=== PATIENT | female | born 1985 | race Caucasian/White ===

== ENCOUNTER 2020-08-27 07:17 | Inpatient (IN) | payer MEDICAID, OTHER, SELFPAY ==
[2020-08-27] MEDS ORDERED: Metoclopramide HCl 10 MG/2 ML VIAL ONE (07:47)
[2020-08-27] MEDS ORDERED: Ketorolac Tromethamine 30 MG/ML VIAL ONE (07:47)
[2020-08-27] MEDS ORDERED: Promethazine HCl 25 MG/ML VIAL ONE ×2 (08:03→11:40)
[2020-08-27 08:06] LABS: #Lymphocytes 1.4 thou/uL (1.20-3.40); #Monocytes 0.7 thou/uL (0.11-0.59); #Neutrophils 12.6 thou/uL (1.40-6.50); %Basophils 0.1 % (0.0-1.0); %Eosinophils 0.1 % (0.0-10.0); %Lymphocytes 9.4 % (21.0-51.0); %Monocytes 4.6 % (0.0-10.0); %Neutrophils 85.8 % (42.0-75.0); Hemoglobin 13.9 g/dL (12.0-16.0); Mean Corpuscular HGB CONC 32.9 g/dL (32.0-36.0); Mean Corpuscular Hemoglobin 33.3 pg (27.0-31.0); Mean Platelet Volume 9.9 fL (7.4-10.4); Platelet Count 190 thou/uL (130-400); RBC Distribution Width 12.2 % (11.5-14.5); Red Blood Cell (RBC) Count 4.16 mill/uL (4.20-5.40); White Blood Cell (WBC) Count 14.7 thou/uL (4.8-10.8)
[2020-08-27 08:18] LABS: ALT (SGPT) 23 U/L (8-55); AST (SGOT) 17 U/L (5-34); Albumin 3.9 g/dL (3.5-5.0); Alkaline Phosphatase 71 U/L (40-110); Anion Gap 17 mmol/L (10-20); BUN (Urea Nitrogen) 24 mg/dL (7.0-18.7); Bilirubin, Total 1.5 mg/dL (0.2-1.2); Calc. Creatinine Clearance 0 mL/min (70-130); Calcium 8.8 mg/dL (7.8-10.44); Carbon Dioxide 23 mmol/L (22-29); Chloride 108 mmol/L (98-107); Globulin 2.7 g/dL (2.4-3.5); Glucose 195 mg/dL (70-105); Lipase Less than 4 U/L (8-78); Magnesium 1.9 mg/dL (1.6-2.6); Protein, Total 6.6 g/dL (6.0-8.3); Sodium 144 mmol/L (136-145)
[2020-08-27 08:31] LABS: Bacteria/HPF None Seen HPF (None Seen); Bilirubin 2+ (Negative); Blood, Urine Negative (Negative); Clarity Clear (Clear); Glucose, Urine (Dipstick) Greater than 1000 mg/dL (Negative); Ketone, Urine 150 mg/dL (Negative); Leukocyte Negative Leu/uL (Negative); Nitrite Negative (Negative); Protein, Urine (Dipstick) 100 mg/dL (Neg-Trace); RBC/HPF 0-3 HPF (0-3); Specific Gravity, Urine 1.035 (1.002-1.036)
[2020-08-27 08:32] LABS: Pregnancy Test - Urine (BHCG) Negative (Negative); Specific Gravity 1.035 (1.002-1.036)
[2020-08-27 08:33] LABS: Pregu Control Background? CLEAR/WHITE (CLR/WHITE); Pregu Control Bar Appear? YES (CONTROL BAR)
[2020-08-27] MEDS ORDERED: Morphine 2 MG/ML VIAL ONE (10:12)
--- NOTE | 2020-08-27 10:46 | CT ---
CT ABDOMEN AND PELVIS WITH IV CONTRAST 08/27/2020 CLINICAL INFORMATION: Abdominal pain. Patient reports three-day history of nausea, vomiting, and back pain. History of digna roparesis and diabetes. COMPARISON: None. Technique: Multiple contiguous axial CT images are obtained through the abdomen and pelvis with IV contrast. Cor onal reformatted images are provided. FINDINGS: Lower Chest: Minimal dependent bibasilar atelectasis. Vessels: Abdominal aorta is normal in caliber. Abdomen: Portal vein:Patent Gallbladder: Within normal limits for CT imaging. Liver: within normal limits. Spleen: within normal limits. Pancreas: within normal limits. Adrenals: within normal limits. Kidneys: within normal limits. Bowel: Portions of the colon are decompressed. There are suggested areas of wall thickening seen in r egion of the hepatic flexure and transverse colon, but this is most likely related to incomplete distention and peristalsis. Loops of small bowel are normal in caliber. There is a single dilated flu id-filled loop of small bowel left upper quadrant, but this is likely related to peristalsis. Appendix: Not visualized. However, there is radiopaque suture material cecal apex likely related to p rior appendectomy. Peritoneum: No ascites or free air; no fluid collection. Mesentery and Retroperitoneum: No enlarged mesenteric or retroperitoneal lymph nodes. Abdominal Wall: within normal limits. Pelvis: Reproductive Organs: T-shaped intrauterine contraceptive device is noted in place. A 1.8 cm low-atten uation structure seen in the right ovary likely due to small ovarian cyst. Bladder: within normal limits. Bones: No suspicious lytic or sclerotic osseous lesions. IMPRESSION: No acute findings in the abdomen or pelvis.
[2020-08-27] MEDS ORDERED: Iopamidol-370 76% 500 ML 1 ML ONE (11:20)
[2020-08-27] MEDS ORDERED: Morphine 4 MG/ML VIAL ONE (13:54)
[2020-08-27] MEDS ORDERED: Acetaminophen 650 MG Suppository PR PRN (15:16)
[2020-08-27] MEDS ORDERED: Dextrose 50% Abboject 50 ML SYRINGE SLOW IVP PRN (15:28)
[2020-08-27] MEDS ORDERED: Dextrose 5% in Water 1,000 ML IV PRN (15:28)
--- NOTE | 2020-08-27 15:55 | PDOC.HHP ---
Hospitalist HPI - History of Present Illness History of Present Illness: ADMISSION DATE: 08/27/2020 TIME OF ASSESSMENT:0100 PRIMARY CARE PHYSICIAN: Anna Lovell CHIEF COMPLAINT: Intractable nausea/vomiting HPI: This is a 34-year-old woman who presents emergency department with persistent nausea vomiting for the last 3 days. She states she has vomited more than 5 times each day and unable to tolerate any p.o. intake. She states the vomiting happened spontaneously even when she is not attempting to eat or drink. More recently she has started vomiting bilious fluid. She noticed today that her stools were tarry in appearance. Denies any hematemesis. Has not had any recent fevers chills or sweats. Patient has a history of type 1 diabetes and a known history of gastroparesis. Reports having similar symptoms approximately 10 years ago when she was initially diagnosed with gastroparesis. At that time she was started on Reglan which she took for a couple of years and eventually was taken off due to her symptoms improving. She was seen in the ER and prescribed Reglan and Zofran which she attempted to take at home without any improvement. ROS: She reports having generalized discomfort and aching particularly in her back. Denies having any dizziness or headaches. No abdominal pain or urinary s ymptoms. ED COURSE: In the emergency department she underwent labs that showed a white count of 14.7, hemoglobin 13.9, hematocrit 42.1, platelets 190, neutrophils 85.8%. Sodium 144, potassium 4, chloride 108, carbon dioxide 23, anion gap 17, BUN 24, creatinine 0.87, GFR 74. Glucose 195. LFTs normal except for total bilirubin which was elevated at 1.5. Lipase negative. Magnesium 1.9. Ketones elevated at 1.58 Urine test negative. Urinalysis showed 100 protein, greater than 1000 glucose, 150 ketones, 2+ bilirubin, 4-6 white blood cells, 7-[address] abdomen and pelvis done demonstrated no acute findings. For her pain she has received a total of 6 mg of morphine IV. Also given 30 mg of Toradol IV. She has been given 1 L of normal saline. For nausea vomiting she received promethazine as well as Reglan. PAST MEDICAL HISTORY: 1. Type 1 diabetes mellitus 2. Gastroparesis PAST SURGICAL HISTORY: 1. x2 2. Appendectomy SOCIAL HISTORY: Denies any tobacco use or alcohol consumption. States she did try smoking marijuana recently, 1 day ago, to see if it would help control her nausea and vomiting. Denies any other history of drug use. FAMILY HISTORY: Noncontributory ALLERGIES: No known drug allergies CURRENT MEDICATIONS: 1. Lantus 37 units a day at bedtime 2. Novolin - Exam General Appearance: NAD, awake alert, ill appearing (appears generally unwell) General - other findings: VS: Temp 98.6, HR 63, BP 146/83, RR 18, O2 sat 97% on room air Eye: PERRL, anicteric sclera ENT: normocephalic atraumatic, no oropharyngeal lesions, dry oral mucosa Neck: supple, symmetric, no lymphadenopathy Heart: RRR, no murmur, no gallops, normal peripheral pulses Respiratory: CTAB, no wheezes, no rales, no ronchi, normal chest expansion, no tachypnea, normal percussion Gastrointestinal: soft, non-tender, non-distended, normal bowel sounds, no palpable masses, no guarding, no rigidity Extremities: no edema Skin: normal turgor, no lesions, no rashes Neurological: cranial nerve grossly intact, normal sensation to touch Musculoskeletal: generalized weakness Psychiatric: normal affect, normal behavior, A&O x 3 Hospitalist Results - Labs Result Diagrams: 08/27/20 07:48 08/27/20 07:48 Lab results: WBC 14.7 thou/uL (4.8-10.8) H 08/27/20 07:48 Hgb 13.9 g/dL (12.0-16.0) 08/27/20 07:48 Hct 42.1 % (36.0-47.0) 08/27/20 07:48 MCV 101.0 fL (78.0-98.0) H 08/27/20 07:48 Plt Count 190 thou/uL (130-400) 08/27/20 07:48 Neutrophils % 85.8 % (42.0-75.0) H 08/27/20 07:48 Sodium 144 mmol/L (136-145) 08/27/20 07:48 Potassium 4.0 mmol/L (3.5-5.1) 08/27/20 07:48 Chloride 108 mmol/L (98-107) H 08/27/20 07:48 Carbon Dioxide 23 mmol/L (22-29) 08/27/20 07:48 BUN 24 mg/dL (7.0-18.7) H 08/27/20 07:48 Creatinine 0.87 mg/dL (0.6-1.1) 08/27/20 07:48 Glucose 195 mg/dL (70-105) H 08/27/20 07:48 Calcium 8.8 mg/dL (7.8-10.44) 08/27/20 07:48 Total Bilirubin 1.5 mg/dL (0.2-1.2) H 08/27/20 07:48 AST 17 U/L (5-34) 08/27/20 07:48 ALT 23 U/L (8-55) 08/27/20 07:48 Alkaline Phosphatase 71 U/L (40-110) 08/27/20 07:48 Serum Total Protein 6.6 g/dL (6.0-8.3) 08/27/20 07:48 Albumin 3.9 g/dL (3.5-5.0) 08/27/20 07:48 Lipase Less than 4 U/L (8-78) L 08/27/20 07:48 Urine Ketones 150 mg/dL (Negative) A 08/27/20 08:08 Urine Blood Negative (Negative) 08/27/20 08:08 Urine Nitrite Negative (Negative) 08/27/20 08:08 Ur Leukocyte Esterase Negative Ana/uL (Negative) 08/27/20 08:08 Urine RBC 0-3 HPF (0-3) 08/27/20 08:08 Urine WBC 4-6 HPF (0-3) A 08/27/20 08:08 Ur Squamous Epith Cells 7-10 HPF (0-3) A 08/27/20 08:08 Urine Bacteria None Seen HPF (None Seen) 08/27/20 08:08 - Radiology Interpretation CT scan - abdomen Status: report reviewed by co Hospitalist H&P A/P - Problem (1) Intractable nausea and vomiting Code(s): R11.2 - NAUSEA WITH VOMITING, UNSPECIFIED Status: Acute Assessment and Plan: Known history of gastroparesis Continue Reglan and Zofran Check electrolytes, replace as necessary Check UDS (2) Complaint of melena Code(s): K92.1 - MELENA Status: Acute Assessment and Plan: Check stools for occult blood May have developed bleeding from Earline Hanley tear Monitor H/H (3) Ketosis Code(s): E88.89 - OTHER SPECIFIED METABOLIC DISORDERS Status: Acute Assessment and Plan: Aggressive fluid resuscitation NS at 250 mL/Hr Ok to take sips of water/ice chips Repeat Ketones (4) Type 1 diabetes mellitus Status: Chronic Assessment and Plan: Monitor glucose Q6H Mild sliding scale initiated only for now Ok to resume home insulin once she resumes a diet (5) Dehydration Code(s): E86.0 - DEHYDRATION Status: Acute Assessment and Plan: IV fluids as above Monitor renal function Check CK (6) Total bilirubin, elevated Code(s): R17 - UNSPECIFIED JAUNDICE Status: Acute Assessment and Plan: Likely due to excessive vomiting Repeat LFTs including direct bili and lipase in the AM (7) Gastroparesis Code(s): K31.84 - GASTROPARESIS Status: Chronic - Plan Plan: Baseline CXR GI prophylaxis with Protonix DVT Prophylaxis: mechanical SCDs. CODE STATUS FULL Case discussed with Dr. Deleon who agrees with plan as above.
[2020-08-27] MEDS ORDERED: Pantoprazole 40 MG VIAL IVP SCH (16:15)
[2020-08-27] MEDS ORDERED: Sodium Chloride 0.9% (PF) 10 ML VIAL FS PRN (16:30)
[2020-08-27 16:31] LABS: Lactic Acid 1.1 mmol/L (0.5-2.2)
[2020-08-27] MEDS: Sodium Chloride 0.9% 1,000 ML IV SCH ×2 (16:31→20:28)
--- NOTE | 2020-08-27 16:34 | RAD ---
TWO VIEW CHEST: 08/27/20 HISTORY: Chest pain. No comparison. Lung martinez are clear. No infiltrate identified. Heart and mediastinum unremarkable. Osseous structur es unremarkable. IMPRESSION: No acute abnormality identified. POS: AGW
[2020-08-27 16:47] LABS: Amphetamine Not Detected (NotDetected); Barbiturates Screen Not Detected (NotDetected); Benzodiazepine Screen Not Detected (NotDetected); Cocaine Metabolite Screen Not Detected (NotDetected); Medtox Control Line Valid? VALID (VALID); Medtox Reader # READER 4; Methadone Not Detected (NotDetected); Methamphetamine Not Detected (NotDetected); Opiate Screen Not Detected (NotDetected); Oxycodone Screen Not Detected (NotDetected); Phencyclidine (PCP) Not Detected (NotDetected); THC/Cannabinoid Screen Detected (NotDetected); Tricyclic Screen Not Detected (NotDetected)
[2020-08-27] MEDS: Ondansetron PF 4 MG/2 ML Vial IVP PRN (17:52)
[2020-08-27] MEDS: Acetaminophen 325 MG TAB PO PRN (19:58)
[2020-08-27] MEDS ORDERED: Famotidine/PF 20 mg/2ml Vial SLOW IVP SCH (21:00)
[2020-08-27] MEDS ORDERED: Ketorolac Tromethamine 30 MG/ML VIAL IVP SCH (21:15)
[2020-08-27 22:58] VITALS: BMI 28.6
[2020-08-27 23:48] LABS: SARS-CoV-2 MS2 Positive; SARS-CoV-2 N Gene Negative; SARS-CoV-2 S Gene Negative; SARS-CoV-2 by NAA Not Detected (NotDetected); SARS-CoV-2 orf1ab Negative
[2020-08-28] MEDS: Ondansetron PF 4 MG/2 ML Vial IVP PRN ×4 (01:01→19:59)
[2020-08-28] MEDS: Sodium Chloride 0.9% 1,000 ML IV SCH ×5 (01:02→21:23)
[2020-08-28] MEDS ORDERED: Ketorolac Tromethamine 30 MG/ML VIAL IVP SCH (02:15)
[2020-08-28] MEDS ORDERED: Promethazine HCl 25 MG in Sodium Chloride 0.9% 50 ML IVPB SCH (03:30)
[2020-08-28 05:55] LABS: ALT (SGPT) 20 U/L (8-55); AST (SGOT) 14 U/L (5-34); Albumin 3.5 g/dL (3.5-5.0); Alkaline Phosphatase 65 U/L (40-110); Anion Gap 17 mmol/L (10-20); BUN (Urea Nitrogen) 16 mg/dL (7.0-18.7); Bilirubin, Total 1.5 mg/dL (0.2-1.2); Calc. Creatinine Clearance 136 mL/min (70-130); Carbon Dioxide 23 mmol/L (22-29); Chloride 104 mmol/L (98-107); Globulin 2.4 g/dL (2.4-3.5); Glucose 208 mg/dL (70-105); Lipase Less than 4 U/L (8-78); Potassium 3.6 mmol/L (3.5-5.1); Protein, Total 5.9 g/dL (6.0-8.3); Sodium 140 mmol/L (136-145)
[2020-08-28 06:15] LABS: #Basophils 0.1 thou/uL (0.0-0.2); #Lymphocytes 1.8 thou/uL (1.20-3.40); #Monocytes 0.6 thou/uL (0.11-0.59); #Neutrophils 6.8 thou/uL (1.40-6.50); %Basophils 0.6 % (0.0-1.0); %Eosinophils 0.3 % (0.0-10.0); %Lymphocytes 19.3 % (21.0-51.0); %Monocytes 6.7 % (0.0-10.0); %Neutrophils 73.2 % (42.0-75.0); Hemoglobin 12.8 g/dL (12.0-16.0); Mean Corpuscular HGB CONC 33.1 g/dL (32.0-36.0); Mean Corpuscular Hemoglobin 32.3 pg (27.0-31.0); Mean Corpuscular Volume 97.5 fL (78.0-98.0); Platelet Count 143 thou/uL (130-400); RBC Distribution Width 11.8 % (11.5-14.5); Red Blood Cell (RBC) Count 3.97 mill/uL (4.20-5.40); White Blood Cell (WBC) Count 9.3 thou/uL (4.8-10.8)
[2020-08-28] MEDS: HumaLOG 300 UNITS/3 ML VIAL SC PRN ×2 (06:45→14:04)
[2020-08-28] MEDS: Pantoprazole 40 MG VIAL IVP SCH (08:29)
[2020-08-28] MEDS ORDERED: Dextrose 5 %-0.45 % NaCl 1,000 ML IV PRN (10:00)
[2020-08-28] MEDS ORDERED: Sodium Chloride 0.9% 1,000 ML IV PRN ×4 (10:00)
[2020-08-28] MEDS ORDERED: Electrolyte Replacement Protocol 1 EACH IVPB SCH (10:00)
[2020-08-28] MEDS ORDERED: NS 0.9% w/ 20 MEQ KCL 1,000 ML IV PRN ×2 (10:00)
--- NOTE | 2020-08-28 10:12 | PDOC.HOSPP ---
- Subjective Encounter Date: 08/28/20 Encounter Time: 10:08 Subjective: Patient continues to feel generally unwell. She states she vomited this morning and has continued to feel nauseated with dry heaving. Given Promethazine. Reports having a fruity breath this morning. Also reports generalized back pain that seems to be worse if she stands straight, states she has abdominal discomfort as well when she stands straight. Her discomfort is alleviated by hunching over. She recalls having a sore on the left inner thigh a month ago which was draining purulent material. She self-treated by squeezing out the pus, cleaning and applying bandages. Did not receive any medical care or antibiotics for this. Reports having occasional swelling in the area but has not drained for some time. It remains sore/tender. Has been tolerating sips of water and ice. Denies any fevers, chills or sweats overnight. No headaches or dizziness. No chest pain, cough or sob. No urinary symptoms. All other review of systems are negative. - Objective Vital Signs & Weight: Vital Signs (12 hours) Temp Pulse Resp BP Pulse Ox 08/28/20 08:20 98.6 F 66 16 137/79 97 08/28/20 04:39 98.3 F 71 20 147/85 H 97 08/27/20 23:17 98.4 F 65 20 134/74 98 Weight Weight 182 lb 15.739 oz I&O: 08/27/20 08/28/20 08/29/20 06:59 06:59 06:59 Intake Total 2401 Output Total 50 Balance 2351 Result Diagrams: 08/28/20 05:15 08/28/20 05:15 Additional Labs: Accuchecks 08/28/20 08/27/20 05:16 23:21 POC Glucose 201 H 164 H Hospitalist ROS - Medication Medications: Active Medications Generic Name Dose Route Start Last Admin Trade Name Freq PRN Reason Stop Dose Admin Acetaminophen 650 mg 08/27/20 15:16 08/27/20 19:58 Acetaminophen 325 Mg Tab PO 650 mg Q4H PRN Administration Headache/Fever/Mild Pain (1-3) Sodium Chloride 1,000 mls @ 200 mls/hr 08/27/20 15:30 08/28/20 06:45 Normal Saline 0.9% IV 1,000 mls .Q5H TEODORO Administration Insulin Human Lispro 0 units 08/27/20 15:28 08/28/20 06:45 Humalog 300 Units/3 Ml Vial SC 3 unit .MILD SLIDING SCALE PRN Administration Mild Correctional Scale Ondansetron HCl 4 mg 08/27/20 15:16 08/28/20 08:29 Ondansetron Pf 4 Mg/2 Ml Vial IVP 4 mg Q6H PRN Administration Nausea/Vomiting Pantoprazole Sodium 40 mg 08/28/20 09:00 08/28/20 08:29 Pantoprazole 40 Mg Vial IVP 40 mg DAILY TEODORO Administration - Exam General Appearance: ill appearing (found hunched over the sink.) Eye: PERRL, anicteric sclera ENT: normocephalic atraumatic, no oropharyngeal lesions Neck: supple, no lymphadenopathy Heart: RRR, no murmur, no gallops, no rubs, normal peripheral pulses Respiratory: CTAB, no wheezes, no rales, no ronchi, normal chest expansion, no tachypnea Gastrointestinal: soft, non-tender, non-distended, normal bowel sounds, no palpable masses, no guarding, no rigidity Gastrointestinal - other findings: negative Vee's sign, mild discomfort when she stands straight. Extremities: no edema Skin: normal turgor, no rashes Skin - other findings: Sore on left inner thigh, no fluctuant or firm collection, no cellulitis Neurological: cranial nerve grossly intact, normal sensation to touch, no weakness, no focal deficits Musculoskeletal: normal tone, normal strength Psychiatric: normal affect, normal behavior, A&O x 3 Hosp A/P (1) Ketosis Code(s): E88.89 - OTHER SPECIFIED METABOLIC DISORDERS Status: Acute Plan: Worse from yesterday and now with "fruity breath" per patient. Will start DKA protocol as per discussion with Dr. Deleon. Transfer to [facility] for above. (2) Intractable nausea and vomiting Code(s): R11.2 - NAUSEA WITH VOMITING, UNSPECIFIED Status: Acute Plan: Continue Reglan (3) Complaint of melena Code(s): K92.1 - MELENA Status: Acute Plan: No further episodes of "black tarry" stools. H/H remains stable. (4) Type 1 diabetes mellitus Status: Chronic Plan: Patient remains NPO except for sips of water/ice due to N/V Plan as above (5) Dehydration Code(s): E86.0 - DEHYDRATION Status: Acute Plan: BUN/GFR improved compared to yesterday Continue IV Fluids per DKA protocol (6) Total bilirubin, elevated Code(s): R17 - UNSPECIFIED JAUNDICE Status: Acute Plan: Stable, direct bili 0.5 negative murphys sign. Monitor LFTs. Likely reactive due to vomiting. (7) Gastroparesis Code(s): K31.84 - GASTROPARESIS Status: Chronic Plan: Secondary to diabetes (8) Leukocytosis Code(s): D72.829 - ELEVATED WHITE BLOOD CELL COUNT, UNSPECIFIED Status: Acute Plan: Initially thought to be reactive due to intractable n/v COVID negative. CXR unremarkable and UA without evidence of UTI Respiratory viral panel ordered. Possible source is left inner thigh wound (Cx pending) She remains afebrile. WCC trending down. Consider starting IV Abx (Vanc/Rocephin) Wound care consulted - Plan DVT proph w/SCDs Continue Toradol for generalized aches/back discomfort GI prophylaxis: Resume pantoprazole CODE STATUS FULL Case discussed with Dr. Deleon who agrees with plan as above.
[2020-08-28] MEDS ORDERED: Magnesium 2 GM/50 ML 2 GM in Premix Bag 1 BAG IVPB SCH (10:45)
[2020-08-28] MEDS: Metoclopramide HCl 10 MG/2 ML VIAL IVP PRN ×2 (11:32→17:15)
[2020-08-28] MEDS: Ketorolac Tromethamine 30 MG/ML VIAL IVP SCH ×2 (11:32→17:13)
[2020-08-28 14:22] LABS: Anion Gap 19 mmol/L (10-20); BUN (Urea Nitrogen) 17 mg/dL (7.0-18.7); Calc. Creatinine Clearance 129 mL/min (70-130); Calcium 8.3 mg/dL (7.8-10.44); Carbon Dioxide 21 mmol/L (22-29); Chloride 103 mmol/L (98-107); Glucose 230 mg/dL (70-105); Potassium 3.8 mmol/L (3.5-5.1); Sodium 139 mmol/L (136-145)
[2020-08-28] MEDS ORDERED: HumaLOG 300 UNITS/3 ML VIAL SC PRN (16:15)
[2020-08-28] MEDS: HUMULIN R 100 UNITS in Sodium Chloride 0.9% 100 ML IVPB SCH (17:13)
[2020-08-28] MEDS: D5 1/2 NS w/20 mEq KCL 1,000 ML IV PRN ×2 (17:13→21:20)
[2020-08-28 18:56] LABS: Anion Gap 20 mmol/L (10-20); BUN (Urea Nitrogen) 17 mg/dL (7.0-18.7); Calc. Creatinine Clearance 131 mL/min (70-130); Calcium 8.2 mg/dL (7.8-10.44); Carbon Dioxide 21 mmol/L (22-29); Chloride 103 mmol/L (98-107); Glucose 229 mg/dL (70-105); Potassium 3.6 mmol/L (3.5-5.1); Sodium 140 mmol/L (136-145)
[2020-08-29] MEDS: Metoclopramide HCl 10 MG/2 ML VIAL IVP PRN ×4 (00:23→21:52)
[2020-08-29] MEDS: Ketorolac Tromethamine 30 MG/ML VIAL IVP SCH ×2 (00:24→06:24)
[2020-08-29] MEDS: Sodium Chloride 0.9% 1,000 ML IV SCH ×2 (03:56→08:19)
[2020-08-29] MEDS: Ondansetron PF 4 MG/2 ML Vial IVP PRN ×2 (04:02→11:21)
[2020-08-29 04:17] LABS: Lactic Acid 1.4 mmol/L (0.5-2.2)
[2020-08-29 04:18] LABS: #Eosinphils 0.1 thou/uL (0.0-0.7); #Lymphocytes 2.6 thou/uL (1.20-3.40); #Monocytes 0.6 thou/uL (0.11-0.59); #Neutrophils 5.4 thou/uL (1.40-6.50); %Basophils 0.2 % (0.0-1.0); %Eosinophils 0.6 % (0.0-10.0); %Lymphocytes 29.9 % (21.0-51.0); %Monocytes 6.8 % (0.0-10.0); %Neutrophils 62.5 % (42.0-75.0); Hemoglobin 12.4 g/dL (12.0-16.0); Mean Corpuscular HGB CONC 34.4 g/dL (32.0-36.0); Mean Corpuscular Hemoglobin 33.7 pg (27.0-31.0); Mean Corpuscular Volume 98.1 fL (78.0-98.0); Mean Platelet Volume 9.8 fL (7.4-10.4); Platelet Count 147 thou/uL (130-400); RBC Distribution Width 11.6 % (11.5-14.5); Red Blood Cell (RBC) Count 3.67 mill/uL (4.20-5.40); White Blood Cell (WBC) Count 8.6 thou/uL (4.8-10.8)
[2020-08-29 04:42] LABS: ALT (SGPT) 16 U/L (8-55); AST (SGOT) 11 U/L (5-34); Albumin 3.1 g/dL (3.5-5.0); Alkaline Phosphatase 56 U/L (40-110); Bilirubin, Direct 0.5 mg/dL (0.1-0.3); Bilirubin, Total 1.3 mg/dL (0.2-1.2); Protein, Total 5.3 g/dL (6.0-8.3)
[2020-08-29 04:43] LABS: Anion Gap 8 mmol/L (10-20); BUN (Urea Nitrogen) 11 mg/dL (7.0-18.7); Calc. Creatinine Clearance 140 mL/min (70-130); Calcium 7.8 mg/dL (7.8-10.44); Carbon Dioxide 27 mmol/L (22-29); Chloride 106 mmol/L (98-107); Glucose 121 mg/dL (70-105); Potassium 3.4 mmol/L (3.5-5.1); Sodium 138 mmol/L (136-145)
[2020-08-29] MEDS: D5 1/2 NS w/20 mEq KCL 1,000 ML IV PRN (06:24)
[2020-08-29] MEDS ORDERED: Potassium Chloride 40 MEQ in Sodium Chloride 0.9% 250 ML 250 ML IVPB SCH (08:00)
[2020-08-29] MEDS: HUMULIN R 100 UNITS in Sodium Chloride 0.9% 100 ML IVPB SCH (08:06)
[2020-08-29] MEDS: Pantoprazole 40 MG VIAL IVP SCH (08:06)
[2020-08-29] MEDS ORDERED: Magnesium 2 GM/50 ML 2 GM in Premix Bag 1 BAG IVPB SCH ×3 (09:15→15:00)
[2020-08-29] MEDS ORDERED: Dextrose 5% in Water 1,000 ML IV PRN (09:53)
[2020-08-29] MEDS: Insulin Glargine 37 UNITS in Pre-Filled Syringe 1 EACH SC SCH (11:20)
--- NOTE | 2020-08-29 13:32 | PDOC.HOSPP ---
- Subjective Encounter Date: 08/29/20 Subjective: The patient had no new episodes of nausea and vomiting today. - Objective Vital Signs & Weight: Vital Signs (12 hours) Temp Pulse Ox 08/29/20 07:50 99 08/29/20 07:40 98.7 F 08/29/20 04:10 98.2 F Weight Admit Weight 182 lb 15.68 oz Weight 182 lb 15.68 oz Most Recent Monitor Data Heart Rate from ECG 70 NIBP 135/77 NIBP BP-Mean 96 Respiration from ECG 14 SpO2 98 I&O: 08/28/20 08/29/20 08/30/20 06:59 06:59 06:59 Intake Total 2401 3015 516 Output Total 50 Balance 2351 3015 516 Result Diagrams: 08/29/20 03:40 08/29/20 03:40 Additional Labs: Accuchecks 08/29/20 08/29/20 08/29/20 09:05 08:05 06:03 POC Glucose 151 H 165 H 174 H 08/29/20 08/29/20 08/29/20 05:21 04:06 03:09 POC Glucose 175 H 97 135 H 08/29/20 08/29/20 08/28/20 01:26 00:05 23:16 POC Glucose 166 H 176 H 174 H 08/28/20 08/28/20 08/28/20 22:09 21:07 20:28 POC Glucose 194 H 199 H 203 H 08/28/20 08/28/20 08/28/20 19:04 18:04 16:16 POC Glucose 212 H 221 H 219 H Hospitalist ROS - Medication Medications: Active Medications Generic Name Dose Route Start Last Admin Trade Name Freq PRN Reason Stop Dose Admin Acetaminophen 650 mg 08/27/20 15:16 08/27/20 19:58 Acetaminophen 325 Mg Tab PO 650 mg Q4H PRN Administration Headache/Fever/Mild Pain (1-3) Potassium Chloride/Dextrose/Sod Cl 1,000 mls @ 250 mls/hr 08/28/20 10:00 08/29/20 06:24 D5 1/2 Ns W/20 Meq Kcl IV 1,000 mls .Q4H PRN Administration Step 4 of DKA Protocol Protocol Insulin Glargine 37 units/ 0.37 mls @ 0 mls/hr 08/29/20 09:00 08/29/20 11:20 Miscellaneous Medication SC 0.37 mls QAM TEODORO Administration Metoclopramide HCl 10 mg 08/28/20 08:01 08/29/20 06:25 Metoclopramide Hcl 10 Mg/2 Ml Vial IVP 10 mg Q6H PRN Administration Nausea/Vomiting Ondansetron HCl 4 mg 08/27/20 15:16 08/29/20 11:21 Ondansetron Pf 4 Mg/2 Ml Vial IVP 4 mg Q6H PRN Administration Nausea/Vomiting Pantoprazole Sodium 40 mg 08/28/20 09:00 08/29/20 08:06 Pantoprazole 40 Mg Vial IVP 40 mg DAILY TEODORO Administration - Exam General Appearance: awake alert ENT: normocephalic atraumatic Neck: supple, no JVD Heart: RRR Respiratory: normal chest expansion, no tachypnea Extremities: no cyanosis, no clubbing Neurological: cranial nerve grossly intact Hosp A/P (1) Intractable nausea and vomiting Code(s): R11.2 - NAUSEA WITH VOMITING, UNSPECIFIED Status: Acute (2) Dehydration Code(s): E86.0 - DEHYDRATION Status: Acute (3) Ketosis Code(s): E88.89 - OTHER SPECIFIED METABOLIC DISORDERS Status: Acute (4) Gastroparesis Code(s): K31.84 - GASTROPARESIS Status: Chronic (5) Type 1 diabetes mellitus Status: Chronic - Plan Patient's condition is improving today. Will discontinue insulin drip as the patient is likely not in DKA. Her ketosis is possibly due to dehydration and nausea and vomiting. Continue metoclopramide as needed for nausea and vomiting induced by her gastroparesis. Start diabetic diet and aggressive sliding scale of insulin. Restart her home Lantus. Continue hydration.
[2020-08-29] MEDS: Acetaminophen 325 MG TAB PO PRN (14:21)
[2020-08-29] MEDS: HumaLOG 300 UNITS/3 ML VIAL SC PRN ×2 (14:32→18:07)
[2020-08-29] MEDS ORDERED: traMADol HCl 50 MG TAB PO SCH (19:45)
[2020-08-29] MEDS ORDERED: Promethazine HCl 12.5 MG in Sodium Chloride 0.9% 50 ML IVPB SCH (20:00)
[2020-08-30] MEDS: Ondansetron PF 4 MG/2 ML Vial IVP PRN ×3 (03:22→15:44)
[2020-08-30] MEDS: Acetaminophen 325 MG TAB PO PRN (03:22)
[2020-08-30 05:37] LABS: Anion Gap 16 mmol/L (10-20); BUN (Urea Nitrogen) 10 mg/dL (7.0-18.7); Calc. Creatinine Clearance 140 mL/min (70-130); Calcium 8.4 mg/dL (7.8-10.44); Carbon Dioxide 23 mmol/L (22-29); Chloride 100 mmol/L (98-107); Glucose 261 mg/dL (70-105); Potassium 4.2 mmol/L (3.5-5.1); Sodium 135 mmol/L (136-145)
[2020-08-30] MEDS: HumaLOG 300 UNITS/3 ML VIAL SC PRN ×3 (06:31→16:44)
[2020-08-30] MEDS: Metoclopramide HCl 10 MG/2 ML VIAL IVP PRN ×3 (06:31→19:44)
[2020-08-30] MEDS: Insulin Glargine 37 UNITS in Pre-Filled Syringe 1 EACH SC SCH (09:55)
[2020-08-30] MEDS: Pantoprazole 40 MG VIAL IVP SCH (09:57)
--- NOTE | 2020-08-30 17:05 | PDOC.HOSPP ---
- Subjective Encounter Date: 08/30/20 Subjective: Her nausea and vomiting improved since yesterday. She is tolerating liquid diet and ice cream this morning. - Objective Vital Signs & Weight: Vital Signs (12 hours) Temp Pulse Resp BP Pulse Ox 08/30/20 15:53 98.2 F 86 18 152/80 H 98 08/30/20 12:35 98.4 F 73 18 146/83 H 97 08/30/20 07:08 98.6 F 71 18 148/78 H 98 Weight Admit Weight 182 lb 15.68 oz Weight 182 lb 15.68 oz Most Recent Monitor Data Heart Rate from ECG 70 NIBP 135/77 NIBP BP-Mean 96 Respiration from ECG 14 SpO2 98 I&O: 08/29/20 08/30/20 08/31/20 06:59 06:59 06:59 Intake Total 3015 2376 Output Total 500 Balance 3015 1876 Result Diagrams: 08/29/20 03:40 08/30/20 05:03 Additional Labs: Accuchecks 08/30/20 08/30/20 08/29/20 15:52 12:32 21:59 POC Glucose 235 H 315 H 166 H 08/29/20 18:05 POC Glucose 200 H Hospitalist ROS - Medication Medications: Active Medications Generic Name Dose Route Start Last Admin Trade Name Freq PRN Reason Stop Dose Admin Acetaminophen 650 mg 08/27/20 15:16 08/30/20 03:22 Acetaminophen 325 Mg Tab PO 650 mg Q4H PRN Administration Headache/Fever/Mild Pain (1-3) Insulin Glargine 37 units/ 0.37 mls @ 0 mls/hr 08/29/20 09:00 08/30/20 09:55 Miscellaneous Medication SC 0.37 mls QAM TEODORO Administration Insulin Human Lispro 0 units 08/29/20 09:53 08/30/20 16:44 Humalog 300 Units/3 Ml Vial SC 6 unit .AGGRESSIVE SLIDING PRN Administration Aggressive Correctional Scale Metoclopramide HCl 10 mg 08/28/20 08:01 08/30/20 11:55 Metoclopramide Hcl 10 Mg/2 Ml Vial IVP 10 mg Q6H PRN Administration Nausea/Vomiting Ondansetron HCl 4 mg 08/30/20 03:01 08/30/20 15:44 Ondansetron Pf 4 Mg/2 Ml Vial IVP 4 mg Q6H PRN Administration Nausea/Vomiting Pantoprazole Sodium 40 mg 08/28/20 09:00 08/30/20 09:57 Pantoprazole 40 Mg Vial IVP 40 mg DAILY TEODORO Administration Sodium Chloride 10 ml 08/27/20 15:16 08/30/20 10:01 Flush - Normal Saline 10 Ml Syringe IVF 10 ml Q12HR PRN Administration Saline Flush Sodium Chloride 10 ml 08/27/20 15:16 08/30/20 15:44 Flush - Normal Saline 10 Ml Syringe IVF 10 ml PRN PRN Administration Saline Flush - Exam General Appearance: awake alert ENT: normocephalic atraumatic Neck: supple, no JVD Heart: RRR Respiratory: normal chest expansion, no tachypnea Gastrointestinal: soft, non-tender, non-distended Extremities: no cyanosis Neurological: cranial nerve grossly intact, no focal deficits Hosp A/P (1) Intractable nausea and vomiting Code(s): R11.2 - NAUSEA WITH VOMITING, UNSPECIFIED Status: Acute (2) Dehydration Code(s): E86.0 - DEHYDRATION Status: Acute (3) Ketosis Code(s): E88.89 - OTHER SPECIFIED METABOLIC DISORDERS Status: Acute (4) Gastroparesis Code(s): K31.84 - GASTROPARESIS Status: Chronic (5) Type 1 diabetes mellitus Status: Chronic - Plan Intermittent nausea is still present but no vomiting today. Yesterday we discontinued the insulin drip as the patient was likely not in DKA. Her ketosis is possibly due to dehydration and nausea and vomiting. Sugar levels uncontrolled. Increase lantus by adding 10 u in the evening. Continue metoclopramide as needed for nausea and vomiting induced by her gastroparesis. Continue diabetic diet and aggressive sliding scale of insulin.
[2020-08-30] MEDS ORDERED: Insulin Glargine 10 UNITS in Pre-Filled Syringe SC SCH (21:00)
[2020-08-31] MEDS ORDERED: Melatonin 3 MG TAB PO PRN (02:48)
[2020-08-31] MEDS: HumaLOG 300 UNITS/3 ML VIAL SC PRN ×3 (05:22→16:57)
[2020-08-31] MEDS: Metoclopramide HCl 10 MG/2 ML VIAL IVP PRN ×3 (05:26→16:17)
[2020-08-31 06:20] LABS: Anion Gap 14 mmol/L (10-20); BUN (Urea Nitrogen) 13 mg/dL (7.0-18.7); Calc. Creatinine Clearance 106 mL/min (70-130); Calcium 8.2 mg/dL (7.8-10.44); Carbon Dioxide 25 mmol/L (22-29); Chloride 99 mmol/L (98-107); Glucose 321 mg/dL (70-105); Potassium 4.2 mmol/L (3.5-5.1); Sodium 134 mmol/L (136-145)
[2020-08-31] MEDS: Insulin Glargine 37 UNITS in Pre-Filled Syringe 1 EACH SC SCH ×2 (09:32→23:17)
[2020-08-31] MEDS: Pantoprazole 40 MG VIAL IVP SCH (09:32)
--- NOTE | 2020-08-31 11:42 | PDOC.HOSPP ---
- Subjective Encounter Date: 08/31/20 Encounter Time: 11:41 Subjective: nausea resolved, no abd pain - Objective Vital Signs & Weight: Vital Signs (12 hours) Temp Pulse Resp BP Pulse Ox 08/31/20 07:51 98.6 F 88 20 119/73 98 08/31/20 03:14 97.6 F 75 16 126/82 100 Weight Admit Weight 182 lb 15.68 oz Weight 182 lb 15.68 oz Most Recent Monitor Data Heart Rate from ECG 70 NIBP 135/77 NIBP BP-Mean 96 Respiration from ECG 14 SpO2 98 I&O: 08/30/20 08/31/20 09/01/20 06:59 06:59 06:59 Intake Total 2376 1750 Output Total 500 50 Balance 1876 1700 Result Diagrams: 08/29/20 03:40 08/31/20 05:02 Additional Labs: Accuchecks 08/31/20 08/31/20 08/30/20 11:29 05:02 21:08 POC Glucose 248 H 300 H 138 H 08/30/20 08/30/20 08/29/20 15:52 12:32 14:19 POC Glucose 235 H 315 H 269 H 08/29/20 11:19 POC Glucose 208 H Hospitalist ROS - Medication Medications: Active Medications Generic Name Dose Route Start Last Admin Trade Name Freq PRN Reason Stop Dose Admin Acetaminophen 650 mg 08/27/20 15:16 08/30/20 03:22 Acetaminophen 325 Mg Tab PO 650 mg Q4H PRN Administration Headache/Fever/Mild Pain (1-3) Insulin Glargine 37 units/ 0.37 mls @ 0 mls/hr 08/29/20 09:00 08/31/20 09:32 Miscellaneous Medication SC 0.37 mls QAM TEODORO Administration Insulin Glargine 10 units/ 0.1 mls @ 0 mls/hr 08/30/20 21:00 08/30/20 22:25 Miscellaneous Medication SC 0.1 mls HS TEODORO Administration Insulin Human Lispro 0 units 08/29/20 09:53 08/31/20 11:36 Humalog 300 Units/3 Ml Vial SC 6 unit .AGGRESSIVE SLIDING PRN Administration Aggressive Correctional Scale Melatonin 3 mg 08/31/20 02:48 08/31/20 02:59 Melatonin 3 Mg Tab PO 3 mg HSPRN PRN Administration Insomnia Metoclopramide HCl 10 mg 08/28/20 08:01 08/31/20 11:29 Metoclopramide Hcl 10 Mg/2 Ml Vial IVP 10 mg Q6H PRN Administration Nausea/Vomiting Ondansetron HCl 4 mg 08/30/20 03:01 08/30/20 15:44 Ondansetron Pf 4 Mg/2 Ml Vial IVP 4 mg Q6H PRN Administration Nausea/Vomiting Pantoprazole Sodium 40 mg 08/28/20 09:00 08/31/20 09:32 Pantoprazole 40 Mg Vial IVP 40 mg DAILY TEODORO Administration Sodium Chloride 10 ml 08/27/20 15:16 08/30/20 10:01 Flush - Normal Saline 10 Ml Syringe IVF 10 ml Q12HR PRN Administration Saline Flush Sodium Chloride 10 ml 08/27/20 15:16 08/30/20 15:44 Flush - Normal Saline 10 Ml Syringe IVF 10 ml PRN PRN Administration Saline Flush - Exam General Appearance: awake alert Neck: no JVD Heart: RRR, no murmur Respiratory: CTAB Gastrointestinal: soft, non-tender, normal bowel sounds Extremities: no edema Hosp A/P (1) Intractable nausea and vomiting Code(s): R11.2 - NAUSEA WITH VOMITING, UNSPECIFIED Status: Acute (2) Ketosis Code(s): E88.89 - OTHER SPECIFIED METABOLIC DISORDERS Status: Acute (3) Gastroparesis Code(s): K31.84 - GASTROPARESIS Status: Chronic (4) Type 1 diabetes mellitus Status: Chronic Qualifiers: Diabetes mellitus complication detail: with autonomic neuropathy - Plan cont accu/ss resume outpatient insuin dose conr reglan, will need oral med at discharge
[2020-08-31] MEDS: Ondansetron PF 4 MG/2 ML Vial IVP PRN ×2 (13:35→20:24)
[2020-08-31] MEDS: Acetaminophen 325 MG TAB PO PRN (16:56)
[2020-09-01 05:49] LABS: Anion Gap 12 mmol/L (10-20); BUN (Urea Nitrogen) 8 mg/dL (7.0-18.7); Calc. Creatinine Clearance 132 mL/min (70-130); Calcium 8.7 mg/dL (7.8-10.44); Carbon Dioxide 32 mmol/L (22-29); Chloride 101 mmol/L (98-107); Glucose 138 mg/dL (70-105); Potassium 4.7 mmol/L (3.5-5.1); Sodium 140 mmol/L (136-145)
[2020-09-01] MEDS: Metoclopramide HCl 10 MG/2 ML VIAL IVP PRN ×3 (06:04→20:42)
[2020-09-01] MEDS: HumaLOG 300 UNITS/3 ML VIAL SC PRN ×3 (06:09→17:27)
[2020-09-01] MEDS: Insulin Glargine 37 UNITS in Pre-Filled Syringe 1 EACH SC SCH ×2 (10:08→20:42)
[2020-09-01] MEDS: Pantoprazole 40 MG VIAL IVP SCH (10:09)
--- NOTE | 2020-09-01 10:50 | PDOC.HOSPP ---
- Subjective Encounter Date: 09/01/20 Encounter Time: 10:47 Subjective: mild recurrent nausea yesterday. ok today. discussed diet, etc - Objective Vital Signs & Weight: Vital Signs (12 hours) Temp Pulse Resp BP Pulse Ox 09/01/20 08:00 98.3 F 86 18 104/68 99 09/01/20 03:55 98.5 F 67 16 112/76 97 08/31/20 23:38 98.8 F 72 16 113/72 99 Weight Admit Weight 182 lb 15.68 oz Weight 182 lb 15.68 oz Most Recent Monitor Data Heart Rate from ECG 70 NIBP 135/77 NIBP BP-Mean 96 Respiration from ECG 14 SpO2 98 I&O: 08/31/20 09/01/20 09/02/20 06:59 06:59 06:59 Intake Total 1750 880 Output Total 50 250 Balance 1700 630 Result Diagrams: 08/29/20 03:40 09/01/20 05:04 Additional Labs: Accuchecks 09/01/20 08/31/20 08/31/20 05:41 19:58 16:20 POC Glucose 150 H 89 160 H 08/31/20 11:29 POC Glucose 248 H Hospitalist ROS - Medication Medications: Active Medications Generic Name Dose Route Start Last Admin Trade Name Freq PRN Reason Stop Dose Admin Acetaminophen 650 mg 08/27/20 15:16 08/31/20 16:56 Acetaminophen 325 Mg Tab PO 650 mg Q4H PRN Administration Headache/Fever/Mild Pain (1-3) Insulin Glargine 37 units/ 0.37 mls @ 0 mls/hr 08/29/20 09:00 09/01/20 10:08 Miscellaneous Medication SC 0.37 mls QAM TEOD[place]O Administration Insulin Glargine 37 units/ 0.37 mls @ 0 mls/hr 08/31/20 21:00 08/31/20 23:17 Miscellaneous Medication SC Not Given HS TEODORO Insulin Human Lispro 0 units 08/29/20 09:53 09/01/20 06:09 Humalog 300 Units/3 Ml Vial SC 3 unit .AGGRESSIVE SLIDING PRN Administration Aggressive Correctional Scale Melatonin 3 mg 08/31/20 02:48 08/31/20 02:59 Melatonin 3 Mg Tab PO 3 mg HSPRN PRN Administration Insomnia Metoclopramide HCl 10 mg 08/28/20 08:01 09/01/20 06:04 Metoclopramide Hcl 10 Mg/2 Ml Vial IVP 10 mg Q6H PRN Administration Nausea/Vomiting Ondansetron HCl 4 mg 08/30/20 03:01 08/31/20 20:24 Ondansetron Pf 4 Mg/2 Ml Vial IVP 4 mg Q6H PRN Administration Nausea/Vomiting Pantoprazole Sodium 40 mg 08/28/20 09:00 09/01/20 10:09 Pantoprazole 40 Mg Vial IVP 40 mg DAILY TEODORO Administration Sodium Chloride 10 ml 08/27/20 15:16 09/01/20 10:13 Flush - Normal Saline 10 Ml Syringe IVF 10 ml Q12HR PRN Administration Saline Flush Sodium Chloride 10 ml 08/27/20 15:16 08/30/20 15:44 Flush - Normal Saline 10 Ml Syringe IVF 10 ml PRN PRN Administration Saline Flush - Exam General Appearance: awake alert Neck: no JVD Heart: RRR, no murmur Respiratory: CTAB Gastrointestinal: soft, non-tender, normal bowel sounds Extremities: no edema Hosp A/P (1) Intractable nausea and vomiting Code(s): R11.2 - NAUSEA WITH VOMITING, UNSPECIFIED Status: Acute (2) Ketosis Code(s): E88.89 - OTHER SPECIFIED METABOLIC DISORDERS Status: Acute (3) Gastroparesis Code(s): K31.84 - GASTROPARESIS Status: Chronic (4) Type 1 diabetes mellitus Status: Chronic Qualifiers: Diabetes mellitus complication detail: with autonomic neuropathy - Plan cont accu/ss resume outpatient insuin dose cont iv reglan today, swith to po in AM
[2020-09-01] MEDS: Ondansetron PF 4 MG/2 ML Vial IVP PRN (11:06)
[2020-09-02] MEDS: Metoclopramide HCl 10 MG/2 ML VIAL IVP PRN (05:20)
[2020-09-02 07:04] LABS: Anion Gap 17 mmol/L (10-20); BUN (Urea Nitrogen) 14 mg/dL (7.0-18.7); Calc. Creatinine Clearance 131 mL/min (70-130); Calcium 8.8 mg/dL (7.8-10.44); Carbon Dioxide 23 mmol/L (22-29); Chloride 104 mmol/L (98-107); Glucose 62 mg/dL (70-105); Sodium 140 mmol/L (136-145)
[2020-09-02] MEDS: Metoclopramide HCl 10 MG TAB PO SCH ×2 (08:10→11:15)
[2020-09-02] MEDS: Pantoprazole 40 MG VIAL IVP SCH (08:11)
[2020-09-02] MEDS: Insulin Glargine 37 UNITS in Pre-Filled Syringe 1 EACH SC SCH (09:54)
[2020-09-02 11:17] VITALS: BP 115/78; TEMP 98.1
--- NOTE | 2020-09-02 12:29 | PDOC.HOSPP ---
- Objective Vital Signs & Weight: Vital Signs (12 hours) Temp Pulse Resp BP BP Pulse Ox 09/02/20 11:12 98.1 F 79 16 115/78 97 09/02/20 08:05 98.7 F 73 16 122/74 94 L 09/02/20 03:59 98.4 F 79 16 119/75 98 Weight Admit Weight 182 lb 15.68 oz Weight 182 lb 15.68 oz Most Recent Monitor Data Heart Rate from ECG 70 NIBP 135/77 NIBP BP-Mean 96 Respiration from ECG 14 SpO2 98 I&O: 09/01/20 09/02/20 09/03/20 06:59 06:59 06:59 Intake Total 880 1770 240 Output Total 250 Balance 630 1770 240 Result Diagrams: 08/29/20 03:40 09/02/20 05:42 Additional Labs: Accuchecks 09/02/20 09/02/20 09/01/20 09:53 05:18 20:23 POC Glucose 206 H 82 104 H 09/01/20 16:02 POC Glucose 235 H Hospitalist ROS - Medication Medications: Active Medications Generic Name Dose Route Start Last Admin Trade Name Freq PRN Reason Stop Dose Admin Acetaminophen 650 mg 08/27/20 15:16 08/31/20 16:56 Acetaminophen 325 Mg Tab PO 650 mg Q4H PRN Administration Headache/Fever/Mild Pain (1-3) Insulin Glargine 37 units/ 0.37 mls @ 0 mls/hr 08/29/20 09:00 09/02/20 09:54 Miscellaneous Medication SC 0.37 mls QAM TEOD[place]O Administration Insulin Glargine 37 units/ 0.37 mls @ 0 mls/hr 08/31/20 21:00 09/01/20 20:42 Miscellaneous Medication SC 0.37 mls HS TEOD[place]O Administration Insulin Human Lispro 0 units 08/29/20 09:53 09/01/20 17:27 Humalog 300 Units/3 Ml Vial SC 6 unit .AGGRESSIVE SLIDING PRN Administration Aggressive Correctional Scale Melatonin 3 mg 08/31/20 02:48 08/31/20 02:59 Melatonin 3 Mg Tab PO 3 mg HSPRN PRN Administration Insomnia Metoclopramide HCl 5 mg 09/02/20 07:30 09/02/20 11:15 Metoclopramide Hcl 10 Mg Tab PO 5 mg ACHS TEOD[place]O Administration Ondansetron HCl 4 mg 08/30/20 03:01 09/01/20 11:06 Ondansetron Pf 4 Mg/2 Ml Vial IVP 4 mg Q6H PRN Administration Nausea/Vomiting Pantoprazole Sodium 40 mg 08/28/20 09:00 09/02/20 08:11 Pantoprazole 40 Mg Vial IVP 40 mg DAILY TE[place]O Administration Sodium Chloride 10 ml 08/27/20 15:16 09/01/20 10:13 Flush - Normal Saline 10 Ml Syringe IVF 10 ml Q12HR PRN Administration Saline Flush Sodium Chloride 10 ml 08/27/20 15:16 08/30/20 15:44 Flush - Normal Saline 10 Ml Syringe IVF 10 ml PRN PRN Administration Saline Flush Hosp A/P (1) Intractable nausea and vomiting Code(s): R11.2 - NAUSEA WITH VOMITING, UNSPECIFIED Status: Acute (2) Ketosis Code(s): E88.89 - OTHER SPECIFIED METABOLIC DISORDERS Status: Acute (3) Gastroparesis Code(s): K31.84 - GASTROPARESIS Status: Chronic (4) Type 1 diabetes mellitus Status: Chronic Qualifiers: Diabetes mellitus complication detail: with autonomic neuropathy - Plan cont accu/ss resume outpatient insuin dose cont iv reglan today, swith to po in AM
[2020-09-02] MEDS: HumaLOG 300 UNITS/3 ML VIAL SC PRN (13:35)
--- NOTE | 2020-09-03 05:27 | DIS ---
DATE OF ADMISSION: 08/27/2020 DATE OF DISCHARGE: 09/02/2020 PRIMARY CARE PROVIDER: Anna Lovell. DISPOSITION: Discharged home. FINAL DIAGNOSES: Intractable nausea and vomiting secondary to gastroparesis, secondary to diabetes mellitus type 1, THC abuse. DISCHARGE MEDICINES: 1. Lantus 37 units subcu at bedtime. 2. Metoclopramide 5 mg p.o. q.i.d. before meals and at bedtime. ALLERGIES: NO KNOWN DRUG ALLERGIES. DIET: Diabetic. CODE STATUS: Full. PENDING AT TIME OF DISCHARGE: Nothing. HOSPITAL COURSE: The patient was admitted to [facility] to the Hospitalist Service. She had a history of long-term diabetes mellitus type 1 on insulin. She had a history of gastroparesis about 10 years ago, was treated with Reglan. She had been off many years. She was brought to the emergency room with intractable nausea and vomiting. Her admitting laboratory; comp metabolic profile showed a minimally elevated BUN of 24, chloride 108, sodium 144, potassium 4.0, creatinine 0.87, blood sugar 195. Her bilirubin was slightly high at 1.5. Lactic acid was normal. She did have a positive drug screen only for marijuana. COVID was negative. CBC showed a white count of 14.7, hemoglobin 13.9, and platelet count of 190. The patient was made n.p.o., treated with IV fluids, sliding scale insulin. She slowly improved. Followup CBC was unremarkable. Followup comp metabolic profile was also unremarkable. Following sliding scale, her Lantus was started, eventually placed at her usual level. IV Reglan a.c. and at bedtime was started. Over a couple-day period of time she settled down to where she is able to eat and drink now without difficulty. She is being discharged for followup with her primary care doctor in 3 to 7 days. Diet has been discussed. THC use has been discussed. Her vital signs and physical exam at the time of discharge was normal. Job ID: [id number]
== END 2020-09-02 15:15 | disposition home or self-care (01) | DRG 74 ==
LOC: ERS 07:17 → ERHOLD 12:37 → OBSVTOIN 12:37 → SURG A 17:25 → IMCU/EMU 08-28 16:18 → SJJU 08-29 12:40
PROVIDERS: ADMIT Family Medicine; ATTEND Internal Medicine
DX: E10.43 Type 1 diabetes mellitus with diabetic autonomic (poly)neuropathy (principal); R17 Unspecified jaundice; K31.84 Gastroparesis; E88.89 Other specified metabolic disorders; E86.0 Dehydration; D72.829 Elevated white blood cell count, unspecified; F12.10 Cannabis abuse, uncomplicated; Z20.828 Contact with and (suspected) exposure to other viral communicable diseases; Z90.49 Acquired absence of other specified parts of digestive tract; Z79.899 Other long term (current) drug therapy; Z79.4 Long term (current) use of insulin
CPT/HCPCS: 36415; 36416; 71046; 74177; 80048; 80053; 80076; 80306; 81003; 81015; 81025; 82010; 82248; 82550; 83605; 83690; 83735; 85025; 87070; 87077; 87186; 87205; 87633; 87635; 96365; 96366; 96375; 96376; C9113; J1815; J1885; J2270; J2405; J2550; J2765; J3475; J3480; J3490; J7050; Q9967; U0003

== ENCOUNTER 2020-10-02 10:11 | Emergency (ER) | payer OTHER, SELFPAY ==
[2020-10-02 11:34] LABS: #Eosinphils 0.1 thou/uL (0.0-0.7); #Lymphocytes 1.8 thou/uL (1.20-3.40); #Monocytes 0.9 thou/uL (0.11-0.59); #Neutrophils 6.8 thou/uL (1.40-6.50); %Basophils 0.3 % (0.0-1.0); %Eosinophils 0.6 % (0.0-10.0); %Lymphocytes 19.1 % (21.0-51.0); %Neutrophils 70.9 % (42.0-75.0); Hemoglobin 13.8 g/dL (12.0-16.0); Mean Corpuscular HGB CONC 33.6 g/dL (32.0-36.0); Mean Corpuscular Hemoglobin 32.3 pg (27.0-31.0); Mean Corpuscular Volume 95.9 fL (78.0-98.0); Mean Platelet Volume 9.4 fL (7.4-10.4); Platelet Count 174 thou/uL (130-400); RBC Distribution Width 11.3 % (11.5-14.5); Red Blood Cell (RBC) Count 4.27 mill/uL (4.20-5.40); White Blood Cell (WBC) Count 9.6 thou/uL (4.8-10.8)
[2020-10-02 11:47] LABS: BHCG - Serum Negative (NEGATIVE)
[2020-10-02 11:48] LABS: Pregs Control Background? CLEAR/WHITE (CLR/WHITE); Pregs Control Bar Appear? YES (CONTROL BAR)
[2020-10-02 12:23] LABS: ALT (SGPT) 18 U/L (8-55); AST (SGOT) 26 U/L (5-34); Albumin 3.7 g/dL (3.5-5.0); Alkaline Phosphatase 77 U/L (40-110); Anion Gap 17 mmol/L (10-20); BUN (Urea Nitrogen) 11 mg/dL (7.0-18.7); Bilirubin, Total 1.9 mg/dL (0.2-1.2); Calc. Creatinine Clearance 0 mL/min (70-130); Calcium 8.6 mg/dL (7.8-10.44); Carbon Dioxide 22 mmol/L (22-29); Chloride 97 mmol/L (98-107); Globulin 3.4 g/dL (2.4-3.5); Glucose 221 mg/dL (70-105); Lipase Less than 4 U/L (8-78); Potassium 5.1 mmol/L (3.5-5.1); Protein, Total 7.1 g/dL (6.0-8.3); Sodium 131 mmol/L (136-145)
[2020-10-02] MEDS ORDERED: Ketorolac Tromethamine 30 MG/ML VIAL ONE (13:02)
[2020-10-02 13:43] LABS: Bacteria/HPF None Seen HPF (None Seen); Bilirubin Negative (Negative); Blood, Urine Negative (Negative); Clarity Clear (Clear); Glucose, Urine (Dipstick) Greater than 1000 mg/dL (Negative); Ketone, Urine 150 mg/dL (Negative); Leukocyte Negative Leu/uL (Negative); Nitrite Negative (Negative); Protein, Urine (Dipstick) 100 mg/dL (Neg-Trace); RBC/HPF 0-3 HPF (0-3); Specific Gravity, Urine 1.027 (1.002-1.036); pH, Urine 6.5 (5.0-9.0)
== END 2020-10-02 14:06 | disposition home or self-care (01) ==
LOC: ERS 10:11
DX: R11.0 Nausea (principal); E10.9 Type 1 diabetes mellitus without complications
CPT/HCPCS: 36415; 36416; 80053; 81003; 81015; 82010; 83690; 84703; 85025; 96374; J1885

== ENCOUNTER 2021-07-25 12:16 | Emergency (ER) | payer OTHER ==
[2021-07-25] MEDS ORDERED: Ondansetron PF 4 MG/2 ML Vial ONE (12:40)
[2021-07-25 13:05] LABS: #Basophils 0.1 thou/uL (0.0-0.2); #Lymphocytes 1.7 thou/uL (1.20-3.40); #Monocytes 0.8 thou/uL (0.11-0.59); #Neutrophils 11.3 thou/uL (1.40-6.50); %Basophils 0.5 % (0.0-1.0); %Eosinophils 0.1 % (0.0-10.0); %Lymphocytes 12.3 % (21.0-51.0); %Monocytes 5.7 % (0.0-10.0); %Neutrophils 81.4 % (42.0-75.0); Hemoglobin 14.1 g/dL (12.0-16.0); Mean Corpuscular HGB CONC 34.1 g/dL (32.0-36.0); Mean Corpuscular Hemoglobin 32.6 pg (27.0-31.0); Mean Corpuscular Volume 95.5 fL (78.0-98.0); Mean Platelet Volume 8.4 fL (7.4-10.4); Platelet Count 236 thou/uL (130-400); RBC Distribution Width 12.6 % (11.5-14.5); Red Blood Cell (RBC) Count 4.32 mill/uL (4.20-5.40); White Blood Cell (WBC) Count 13.9 thou/uL (4.8-10.8)
[2021-07-25 13:14] LABS: BHCG - Serum Negative (NEGATIVE); Pregs Control Background? CLEAR/WHITE (CLR/WHITE); Pregs Control Bar Appear? YES (CONTROL BAR)
[2021-07-25 13:23] LABS: ALT (SGPT) 25 U/L (8-55); AST (SGOT) 21 U/L (5-34); Albumin 3.9 g/dL (3.5-5.0); Alkaline Phosphatase 95 U/L (40-110); Anion Gap 15 mmol/L (10-20); BUN (Urea Nitrogen) 19 mg/dL (7.0-18.7); Bilirubin, Total 1.8 mg/dL (0.2-1.2); CK (CPK) 87 U/L (29-168); Calc. Creatinine Clearance 0 mL/min (70-130); Calcium 9.6 mg/dL (7.8-10.44); Carbon Dioxide 27 mmol/L (22-29); Chloride 100 mmol/L (98-107); Globulin 3.2 g/dL (2.4-3.5); Glucose 318 mg/dL (70-105); Lipase Less than 4 U/L (8-78); Magnesium 1.8 mg/dL (1.6-2.6); Phosphorus 3.7 mg/dL (2.3-4.7); Potassium 3.7 mmol/L (3.5-5.1); Protein, Total 7.1 g/dL (6.0-8.3); Sodium 138 mmol/L (136-145)
[2021-07-25] MEDS ORDERED: Pantoprazole 40 MG VIAL ONE (13:59)
[2021-07-25 14:36] LABS: Actual Bicarbonate (HCO3v) 25 mEq/L (22-28); Analyzer IN Cardio ER; Chloride (VBG) 102 mmol/L (98-106); Sodium 138.4 mmol/L (133-146); pH (venous) 7.43 (7.32-7.43)
== END 2021-07-25 16:01 | disposition home or self-care (01) ==
LOC: ERS 12:16
DX: E10.65 Type 1 diabetes mellitus with hyperglycemia (principal); E10.43 Type 1 diabetes mellitus with diabetic autonomic (poly)neuropathy; K31.84 Gastroparesis
CPT/HCPCS: 36415; 36416; 71045; 80053; 82010; 82550; 82805; 83690; 83735; 84100; 84484; 84703; 85025; 96374; 96375; C9113; J2405

== ENCOUNTER 2021-07-26 11:59 | Emergency (ER) | payer OTHER ==
[~2021-07-26 11:59] MED LIST: Iopamidol-370 76% 500 ML 1 ML ONE
[2021-07-26] MEDS ORDERED: Metoclopramide HCl 10 MG/2 ML VIAL ONE (12:53)
[2021-07-26] MEDS ORDERED: diphenhydrAMINE 50 MG/ML VIAL ONE (12:53)
[2021-07-26 13:08] LABS: #Lymphocytes 1.9 thou/uL (1.20-3.40); #Monocytes 0.7 thou/uL (0.11-0.59); #Neutrophils 8.6 thou/uL (1.40-6.50); %Basophils 0.3 % (0.0-1.0); %Eosinophils 0.3 % (0.0-10.0); %Lymphocytes 16.7 % (21.0-51.0); %Monocytes 6.3 % (0.0-10.0); %Neutrophils 76.4 % (42.0-75.0); Hemoglobin 13.1 g/dL (12.0-16.0); Mean Corpuscular HGB CONC 34.6 g/dL (32.0-36.0); Mean Corpuscular Hemoglobin 33.1 pg (27.0-31.0); Mean Corpuscular Volume 95.8 fL (78.0-98.0); Mean Platelet Volume 8.3 fL (7.4-10.4); Platelet Count 205 thou/uL (130-400); RBC Distribution Width 12.3 % (11.5-14.5); Red Blood Cell (RBC) Count 3.96 mill/uL (4.20-5.40); White Blood Cell (WBC) Count 11.3 thou/uL (4.8-10.8)
[2021-07-26 13:24] LABS: BHCG - Serum Negative (NEGATIVE); Pregs Control Background? CLEAR/WHITE (CLR/WHITE); Pregs Control Bar Appear? YES (CONTROL BAR)
[2021-07-26 13:30] LABS: ALT (SGPT) 21 U/L (8-55); AST (SGOT) 18 U/L (5-34); Albumin 3.6 g/dL (3.5-5.0); Alkaline Phosphatase 82 U/L (40-110); Anion Gap 11 mmol/L (10-20); BUN (Urea Nitrogen) 14 mg/dL (7.0-18.7); Calc. Creatinine Clearance 0 mL/min (70-130); Carbon Dioxide 26 mmol/L (22-29); Chloride 101 mmol/L (98-107); Glucose 181 mg/dL (70-105); Lipase Less than 4 U/L (8-78); Magnesium 1.6 mg/dL (1.6-2.6); Potassium 3.4 mmol/L (3.5-5.1); Protein, Total 6.6 g/dL (6.0-8.3); Sodium 135 mmol/L (136-145)
[2021-07-26] MEDS ORDERED: Ketorolac Tromethamine 30 MG/ML VIAL ONE (15:46)
== END 2021-07-26 17:57 | disposition home or self-care (01) ==
LOC: ERS 11:59
DX: N83.201 Unspecified ovarian cyst, right side (principal); E10.9 Type 1 diabetes mellitus without complications
CPT/HCPCS: 36415; 74177; 76856; 80053; 83690; 83735; 84703; 85025; 96365; 96366; 96368; J1200; J1885; J2765; Q9967

== ENCOUNTER 2021-08-12 15:46 | Emergency (ER) | payer OTHER ==
[2021-08-12] MEDS ORDERED: Haloperidol Lactate 5 MG/ML VIAL ONE (16:09)
[2021-08-12 16:28] LABS: #Basophils 0.1 thou/uL (0.0-0.2); #Monocytes 0.6 thou/uL (0.11-0.59); #Neutrophils 8.5 thou/uL (1.40-6.50); %Basophils 0.5 % (0.0-1.0); %Eosinophils 0.4 % (0.0-10.0); %Lymphocytes 17.6 % (21.0-51.0); %Monocytes 5.3 % (0.0-10.0); %Neutrophils 76.3 % (42.0-75.0); Hemoglobin 14.8 g/dL (12.0-16.0); Mean Corpuscular HGB CONC 34.1 g/dL (32.0-36.0); Mean Corpuscular Hemoglobin 33.1 pg (27.0-31.0); Mean Corpuscular Volume 97.1 fL (78.0-98.0); Mean Platelet Volume 7.7 fL (7.4-10.4); Platelet Count 268 thou/uL (130-400); RBC Distribution Width 12.6 % (11.5-14.5); Red Blood Cell (RBC) Count 4.47 mill/uL (4.20-5.40); White Blood Cell (WBC) Count 11.2 thou/uL (4.8-10.8)
[2021-08-12 16:54] LABS: ALT (SGPT) 25 U/L (8-55); AST (SGOT) 26 U/L (5-34); Albumin 4.1 g/dL (3.5-5.0); Alkaline Phosphatase 110 U/L (40-110); Anion Gap 16 mmol/L (10-20); BUN (Urea Nitrogen) 20 mg/dL (7.0-18.7); Bilirubin, Total 2.1 mg/dL (0.2-1.2); Calc. Creatinine Clearance 0 mL/min (70-130); Calcium 9.2 mg/dL (7.8-10.44); Carbon Dioxide 24 mmol/L (22-29); Chloride 98 mmol/L (98-107); Globulin 3.3 g/dL (2.4-3.5); Glucose 238 mg/dL (70-105); Lipase 7 U/L (8-78); Potassium 3.4 mmol/L (3.5-5.1); Protein, Total 7.4 g/dL (6.0-8.3); Sodium 135 mmol/L (136-145)
[2021-08-12] MEDS ORDERED: Potassium Chloride 20 MEQ TAB ONE (17:39)
[2021-08-12 17:40] LABS: Bacteria/HPF None Seen HPF (None Seen); Bilirubin Negative (Negative); Blood, Urine Negative (Negative); Clarity Clear (Clear); Glucose, Urine (Dipstick) Greater than 1000 mg/dL (Negative); Ketone, Urine 20 mg/dL (Negative); Leukocyte Negative Leu/uL (Negative); Nitrite Negative (Negative); Pregnancy Test - Urine (BHCG) Negative (Negative); Pregu Control Background? CLEAR/WHITE (CLR/WHITE); Pregu Control Bar Appear? YES (CONTROL BAR); Protein, Urine (Dipstick) 50 mg/dL (Neg-Trace); RBC/HPF 0-3 HPF (0-3); Specific Gravity 1.036 (1.002-1.036); Specific Gravity, Urine 1.036 (1.002-1.036); Urobilinogen Normal mg/dL (Less than 2)
== END 2021-08-12 18:31 | disposition home or self-care (01) ==
LOC: ERS 15:46
DX: R11.15 Cyclical vomiting syndrome unrelated to migraine (principal); R10.9 Unspecified abdominal pain; F12.90 Cannabis use, unspecified, uncomplicated; F17.290 Nicotine dependence, other tobacco product, uncomplicated; E10.9 Type 1 diabetes mellitus without complications
CPT/HCPCS: 36415; 36416; 80053; 81003; 81015; 81025; 83690; 85025; 93005; 96374; J1630

== ENCOUNTER 2021-09-12 07:35 | Inpatient (IN) | payer OTHER ==
[2021-09-12] MEDS ORDERED: Haloperidol Lactate 5 MG/ML VIAL ONE (08:05)
[2021-09-12] MEDS ORDERED: diphenhydrAMINE 50 MG/ML VIAL ONE (08:05)
[2021-09-12 08:13] LABS: Actual Bicarbonate (HCO3v) 20 mEq/L (22-28); Analyzer IN Cardio ER; Calcium, Ionized (venous) 1.12 mmol/L (1.16-1.32); Chloride (VBG) 96 mmol/L (98-106); Hemoglobin (Hb) 14.9 g/dL (11.7-15.5); Potassium (VBG) 4.09 mmol/L (3.70-5.30); pH (venous) 7.35 (7.32-7.43)
[2021-09-12 08:38] LABS: ALT (SGPT) 26 U/L (8-55); AST (SGOT) 24 U/L (5-34); Acetaminophen Less than 6.0 mcg/mL (10.0-30.0); Albumin 4.3 g/dL (3.5-5.0); Alcohol Less than 10 mg/dL (Less than 10); Alkaline Phosphatase 108 U/L (40-110); Anion Gap 26 mmol/L (10-20); BUN (Urea Nitrogen) 26 mg/dL (7.0-18.7); Bilirubin, Total 1.7 mg/dL (0.2-1.2); Calc. Creatinine Clearance 0 mL/min (70-130); Calcium 10.1 mg/dL (7.8-10.44); Carbon Dioxide 21 mmol/L (22-29); Chloride 96 mmol/L (98-107); Globulin 3.4 g/dL (2.4-3.5); Glucose 328 mg/dL (70-105); Potassium 4.1 mmol/L (3.5-5.1); Protein, Total 7.7 g/dL (6.0-8.3); Salicylate Less than 8.0 mg/dL (15.0-30.0); Sodium 139 mmol/L (136-145)
[2021-09-12] MEDS ORDERED: Insulin Regular 300 UNITS/3 ML VIAL ONE (08:43)
[2021-09-12 08:47] LABS: Band 7 % (5-11); Hemoglobin 14.7 g/dL (12.0-16.0); Lymphocytes 14 % (21-51); MDiff Complete? YES; Mean Corpuscular HGB CONC 33.4 g/dL (32.0-36.0); Mean Corpuscular Hemoglobin 32.6 pg (27.0-31.0); Mean Corpuscular Volume 97.7 fL (78.0-98.0); Mean Platelet Volume 8.3 fL (7.4-10.4); Monocytes 6 % (0-10); Neutrophil 73 % (42-75); Platelet Count 256 thou/uL (130-400); RBC Distribution Width 12.1 % (11.5-14.5); Red Blood Cell (RBC) Count 4.52 mill/uL (4.20-5.40); White Blood Cell (WBC) Count 21.6 thou/uL (4.8-10.8)
[2021-09-12] MEDS ORDERED: Ondansetron PF 4 MG/2 ML Vial ONE (09:14)
[2021-09-12 09:40] LABS: Bacteria/HPF 2+ HPF (None Seen); Bilirubin Negative (Negative); Blood, Urine Negative (Negative); Clarity Extra Turbid (Clear); Glucose, Urine (Dipstick) Greater than 1000 mg/dL (Negative); Ketone, Urine 150 mg/dL (Negative); Leukocyte Negative Leu/uL (Negative); Nitrite Negative (Negative); Protein, Urine (Dipstick) 70 mg/dL (Neg-Trace); Specific Gravity, Urine 1.023 (1.002-1.036); Squamous Epithelial 21-50 HPF (0-3); Urobilinogen Normal mg/dL (Less than 2); pH, Urine 5.5 (5.0-9.0)
[2021-09-12 09:44] LABS: Amphetamine Not Detected (NotDetected); Barbiturates Screen Not Detected (NotDetected); Benzodiazepine Screen Not Detected (NotDetected); Cocaine Metabolite Screen Not Detected (NotDetected); Methadone Not Detected (NotDetected); Methamphetamine Not Detected (NotDetected); Opiate Screen Not Detected (NotDetected); Oxycodone Screen Not Detected (NotDetected); Phencyclidine (PCP) Not Detected (NotDetected); THC/Cannabinoid Screen Detected (NotDetected); Tricyclic Screen Not Detected (NotDetected)
[2021-09-12 10:20] LABS: Anion Gap 15 mmol/L (10-20); BUN (Urea Nitrogen) 24 mg/dL (7.0-18.7); Calc. Creatinine Clearance 0 mL/min (70-130); Calcium 8.5 mg/dL (7.8-10.44); Carbon Dioxide 23 mmol/L (22-29); Chloride 106 mmol/L (98-107); Glucose 261 mg/dL (70-105); Potassium 3.7 mmol/L (3.5-5.1); Sodium 140 mmol/L (136-145)
[2021-09-12] MEDS ORDERED: cefTRIAXone\\ROCEPHIN 1 GM VIAL ONE (10:37)
[2021-09-12] MEDS ORDERED: Promethazine HCl 25 MG/ML VIAL ONE (11:32)
[2021-09-12] MEDS ORDERED: Senokot S 8.6-50 MG TAB PO PRN (12:20)
[2021-09-12] MEDS ORDERED: Dextrose 5% in Water 1,000 ML IV PRN (12:27)
[2021-09-12] MEDS ORDERED: Dextrose 50% Abboject 50 ML SYRINGE SLOW IVP PRN (12:27)
[2021-09-12] MEDS ORDERED: Sodium Chloride 0.9% 1,000 ML IV SCH (12:30)
[2021-09-12 13:39] VITALS: BMI 26.6
[2021-09-12] MEDS: Ondansetron PF 4 MG/2 ML Vial IVP PRN (16:39)
[2021-09-12] MEDS: Famotidine 20 MG TAB PO SCH ×2 (19:14→20:45)
[2021-09-12] MEDS: Famotidine/PF 20 mg/2ml Vial SLOW IVP SCH (20:37)
[2021-09-12] MEDS: Metoclopramide HCl 10 MG TAB PO SCH (20:37)
[2021-09-12] MEDS: NPH, Human Insulin Isophane 300 UNIT/3 ML VIAL SQ SCH (21:15)
[2021-09-12] MEDS ORDERED: Morphine 4 MG/ML VIAL SLOW IVP SCH (21:15)
[2021-09-13] MEDS: Melatonin 3 MG TAB PO SCH ×2 (01:20)
[2021-09-13] MEDS: Ondansetron PF 4 MG/2 ML Vial IVP PRN ×5 (01:35→22:37)
[2021-09-13 07:13] LABS: #Lymphocytes 1.6 thou/uL (1.20-3.40); #Monocytes 0.9 thou/uL (0.11-0.59); #Neutrophils 14.3 thou/uL (1.40-6.50); %Basophils 0.3 % (0.0-1.0); %Eosinophils 0.3 % (0.0-10.0); %Lymphocytes 9.3 % (21.0-51.0); %Monocytes 5.5 % (0.0-10.0); %Neutrophils 84.6 % (42.0-75.0); Hemoglobin 13.5 g/dL (12.0-16.0); Mean Corpuscular Hemoglobin 32.6 pg (27.0-31.0); Mean Platelet Volume 8.7 fL (7.4-10.4); Platelet Count 220 thou/uL (130-400); RBC Distribution Width 11.9 % (11.5-14.5); Red Blood Cell (RBC) Count 4.13 mill/uL (4.20-5.40); White Blood Cell (WBC) Count 16.9 thou/uL (4.8-10.8)
[2021-09-13 07:24] LABS: ALT (SGPT) 27 U/L (8-55); AST (SGOT) 28 U/L (5-34); Albumin 4.1 g/dL (3.5-5.0); Alkaline Phosphatase 101 U/L (40-110); Anion Gap 20 mmol/L (10-20); BUN (Urea Nitrogen) 14 mg/dL (7.0-18.7); Bilirubin, Total 1.7 mg/dL (0.2-1.2); Calc. Creatinine Clearance 101 mL/min (70-130); Calcium 9.6 mg/dL (7.8-10.44); Carbon Dioxide 19 mmol/L (22-29); Chloride 102 mmol/L (98-107); Globulin 3.4 g/dL (2.4-3.5); Glucose 278 mg/dL (70-105); Protein, Total 7.5 g/dL (6.0-8.3); Sodium 137 mmol/L (136-145)
[2021-09-13] MEDS: Acetaminophen 325 MG TAB PO PRN (09:45)
[2021-09-13] MEDS: NPH, Human Insulin Isophane 300 UNIT/3 ML VIAL SQ SCH ×2 (09:45→20:34)
[2021-09-13] MEDS: Venlafaxine XR 37.5 MG CAP PO SCH (09:46)
[2021-09-13] MEDS: Metoclopramide HCl 10 MG TAB PO SCH ×4 (09:46→19:55)
[2021-09-13] MEDS: Famotidine 20 MG TAB PO SCH ×2 (09:48→19:55)
[2021-09-13] MEDS: Famotidine/PF 20 mg/2ml Vial SLOW IVP SCH ×2 (09:48→19:55)
[2021-09-13] MEDS ORDERED: Ketorolac Tromethamine 30 MG/ML VIAL IVP SCH ×2 (10:30→23:00)
[2021-09-13] MEDS: cefTRIAXone\\ROCEPHIN 1 GM in Sodium Chloride 0.9% 100 ML IVPB SCH (11:30)
[2021-09-13] MEDS: Sodium Chloride 0.9% 1,000 ML IV SCH ×3 (11:52→22:05)
[2021-09-13] MEDS: HumaLOG 300 UNITS/3 ML VIAL SC PRN (12:03)
[2021-09-13 12:44] LABS: SARS-CoV-2 PCR by NAA Not Detected (NotDetected)
[2021-09-13 16:47] LABS: Pregnancy Test - Urine (BHCG) Negative (Negative); Pregu Control Background? CLEAR/WHITE (CLR/WHITE); Pregu Control Bar Appear? YES (CONTROL BAR); Specific Gravity 1.039 (1.002-1.036)
[2021-09-14] MEDS: Ondansetron ODT 4 MG TAB PO PRN ×2 (04:21→14:41)
[2021-09-14] MEDS: Sodium Chloride 0.9% 1,000 ML IV SCH ×3 (04:21→19:04)
[2021-09-14] MEDS: Famotidine/PF 20 mg/2ml Vial SLOW IVP SCH (08:31)
[2021-09-14] MEDS: Famotidine 20 MG TAB PO SCH ×2 (08:31→20:21)
[2021-09-14] MEDS: Venlafaxine XR 37.5 MG CAP PO SCH (08:31)
[2021-09-14] MEDS: Metoclopramide HCl 10 MG TAB PO SCH ×4 (08:31→20:21)
[2021-09-14] MEDS: Ondansetron PF 4 MG/2 ML Vial IVP PRN ×2 (08:32→20:20)
[2021-09-14] MEDS: NPH, Human Insulin Isophane 300 UNIT/3 ML VIAL SQ SCH ×2 (08:32→20:20)
[2021-09-14] MEDS ORDERED: Fentanyl 100 MCG/2 ML VIAL ONE (11:26)
[2021-09-14] MEDS ORDERED: Promethazine HCl 25 MG/ML VIAL ONE (11:27)
[2021-09-14] MEDS ORDERED: Ondansetron PF 4 MG/2 ML Vial ONE (11:31)
[2021-09-14] MEDS ORDERED: PROPOFOL 200 MG/20 ML VIAL ONE (11:31)
[2021-09-14] MEDS ORDERED: Succinylcholine 200 MG/10 ml SYRINGE FS ONE (11:31)
[2021-09-14] MEDS ORDERED: Lidocaine 1% PF 5 ML VIAL ONE (11:31)
[2021-09-14] MEDS ORDERED: Dexamethasone 20 MG/5 ML VIAL ONE (11:31)
[2021-09-14] MEDS: cefTRIAXone\\ROCEPHIN 1 GM in Sodium Chloride 0.9% 100 ML IVPB SCH (12:00)
[2021-09-14] MEDS: HumaLOG 300 UNITS/3 ML VIAL SC PRN (16:48)
[2021-09-14] MEDS: Acetaminophen 325 MG TAB PO PRN (16:50)
[2021-09-14] MEDS: Pregabalin 25 MG CAP PO SCH (20:20)
[2021-09-14] MEDS: Pantoprazole 40 MG VIAL IVP SCH (20:20)
[2021-09-14] MEDS ORDERED: Ketorolac Tromethamine 30 MG/ML VIAL IVP SCH (23:59)
[2021-09-15] MEDS: Sodium Chloride 0.9% 1,000 ML IV SCH ×4 (01:45→20:22)
[2021-09-15] MEDS: Ondansetron ODT 4 MG TAB PO PRN ×2 (05:10→10:50)
[2021-09-15 05:56] LABS: #Eosinphils 0.1 thou/uL (0.0-0.7); #Lymphocytes 2.9 thou/uL (1.20-3.40); #Monocytes 0.8 thou/uL (0.11-0.59); #Neutrophils 8.8 thou/uL (1.40-6.50); %Basophils 0.3 % (0.0-1.0); %Eosinophils 0.4 % (0.0-10.0); %Lymphocytes 23.3 % (21.0-51.0); %Monocytes 6.6 % (0.0-10.0); %Neutrophils 69.4 % (42.0-75.0); Hemoglobin 14.7 g/dL (12.0-16.0); Mean Corpuscular HGB CONC 33.5 g/dL (32.0-36.0); Mean Corpuscular Hemoglobin 32.5 pg (27.0-31.0); Mean Corpuscular Volume 97.1 fL (78.0-98.0); Mean Platelet Volume 8.8 fL (7.4-10.4); Platelet Count 233 thou/uL (130-400); RBC Distribution Width 11.6 % (11.5-14.5); Red Blood Cell (RBC) Count 4.51 mill/uL (4.20-5.40); White Blood Cell (WBC) Count 12.6 thou/uL (4.8-10.8)
[2021-09-15 06:18] LABS: ALT (SGPT) 22 U/L (8-55); AST (SGOT) 16 U/L (5-34); Albumin 4.3 g/dL (3.5-5.0); Alkaline Phosphatase 103 U/L (40-110); Anion Gap 16 mmol/L (10-20); BUN (Urea Nitrogen) 16 mg/dL (7.0-18.7); Bilirubin, Total 2.4 mg/dL (0.2-1.2); Calc. Creatinine Clearance 115 mL/min (70-130); Calcium 10.1 mg/dL (7.8-10.44); Carbon Dioxide 26 mmol/L (22-29); Chloride 99 mmol/L (98-107); Globulin 3.5 g/dL (2.4-3.5); Glucose 128 mg/dL (70-105); Potassium 3.6 mmol/L (3.5-5.1); Protein, Total 7.8 g/dL (6.0-8.3); Sodium 137 mmol/L (136-145)
[2021-09-15] MEDS: Famotidine 20 MG TAB PO SCH ×2 (08:32→20:18)
[2021-09-15] MEDS: Metoclopramide HCl 10 MG TAB PO SCH ×4 (08:36→20:17)
[2021-09-15] MEDS: Pregabalin 25 MG CAP PO SCH ×2 (08:36→20:18)
[2021-09-15] MEDS: NPH, Human Insulin Isophane 300 UNIT/3 ML VIAL SQ SCH ×2 (08:36→20:20)
[2021-09-15] MEDS: Pantoprazole 40 MG VIAL IVP SCH ×2 (08:37→20:19)
[2021-09-15] MEDS: Lidocaine 5% Patch TD SCH (08:37)
[2021-09-15] MEDS: Venlafaxine XR 37.5 MG CAP PO SCH (08:37)
[2021-09-15] MEDS ORDERED: Lidocaine 5% Patch TD SCH (09:00)
[2021-09-15] MEDS: cefTRIAXone\\ROCEPHIN 1 GM in Sodium Chloride 0.9% 100 ML IVPB SCH (10:50)
[2021-09-15] MEDS: HumaLOG 300 UNITS/3 ML VIAL SC PRN ×2 (12:11→20:20)
[2021-09-15] MEDS ORDERED: FLU VACC QS2021-22(6MOS UP)/PF 60 MCG/0.5 ML SYRINGE IM ONE (15:15)
[2021-09-15] MEDS: Ondansetron PF 4 MG/2 ML Vial IVP PRN ×2 (15:25→21:31)
[2021-09-15] MEDS: Transdermal Patch Removal TOP SCH (20:19)
[2021-09-16] MEDS: Ondansetron PF 4 MG/2 ML Vial IVP PRN (04:47)
[2021-09-16] MEDS: Sodium Chloride 0.9% 1,000 ML IV SCH ×3 (04:48→17:33)
[2021-09-16 07:15] LABS: #Basophils 0.1 thou/uL (0.0-0.2); #Eosinphils 0.1 thou/uL (0.0-0.7); #Lymphocytes 1.8 thou/uL (1.20-3.40); #Monocytes 0.9 thou/uL (0.11-0.59); #Neutrophils 6.1 thou/uL (1.40-6.50); %Basophils 0.9 % (0.0-1.0); %Eosinophils 0.8 % (0.0-10.0); %Monocytes 9.8 % (0.0-10.0); %Neutrophils 68.6 % (42.0-75.0); Mean Corpuscular Hemoglobin 32.8 pg (27.0-31.0); Mean Corpuscular Volume 96.6 fL (78.0-98.0); Mean Platelet Volume 8.3 fL (7.4-10.4); Platelet Count 225 thou/uL (130-400); RBC Distribution Width 11.6 % (11.5-14.5); Red Blood Cell (RBC) Count 4.26 mill/uL (4.20-5.40); White Blood Cell (WBC) Count 8.9 thou/uL (4.8-10.8)
[2021-09-16 07:33] LABS: Lactic Acid 1.1 mmol/L (0.5-2.2)
[2021-09-16 07:37] LABS: Anion Gap 12 mmol/L (10-20); BUN (Urea Nitrogen) 12 mg/dL (7.0-18.7); Calc. Creatinine Clearance 106 mL/min (70-130); Calcium 9.2 mg/dL (7.8-10.44); Carbon Dioxide 26 mmol/L (22-29); Chloride 100 mmol/L (98-107); Glucose 285 mg/dL (70-105); Potassium 3.4 mmol/L (3.5-5.1); Sodium 135 mmol/L (136-145)
[2021-09-16] MEDS: Lidocaine 5% Patch TD SCH (08:50)
[2021-09-16] MEDS: Famotidine 20 MG TAB PO SCH (08:50)
[2021-09-16] MEDS: NPH, Human Insulin Isophane 300 UNIT/3 ML VIAL SQ SCH ×2 (08:51→20:43)
[2021-09-16] MEDS: Pregabalin 25 MG CAP PO SCH ×2 (08:51→20:39)
[2021-09-16] MEDS: Pantoprazole 40 MG VIAL IVP SCH ×2 (08:51→20:40)
[2021-09-16] MEDS: Venlafaxine XR 37.5 MG CAP PO SCH (08:51)
[2021-09-16] MEDS: Metoclopramide HCl 10 MG TAB PO SCH ×4 (08:52→20:39)
[2021-09-16] MEDS: cefTRIAXone\\ROCEPHIN 1 GM in Sodium Chloride 0.9% 100 ML IVPB SCH (10:44)
[2021-09-16] MEDS: Ondansetron ODT 4 MG TAB PO PRN (16:02)
[2021-09-16] MEDS: HumaLOG 300 UNITS/3 ML VIAL SC PRN ×2 (16:21→20:43)
[2021-09-16] MEDS: Transdermal Patch Removal TOP SCH (20:40)
[2021-09-17] MEDS: HumaLOG 300 UNITS/3 ML VIAL SC PRN ×3 (05:32→17:16)
[2021-09-17] MEDS: Lidocaine 5% Patch TD SCH (10:04)
[2021-09-17] MEDS: Pregabalin 25 MG CAP PO SCH (10:04)
[2021-09-17] MEDS: Metoclopramide HCl 10 MG TAB PO SCH ×3 (10:05→16:39)
[2021-09-17] MEDS: Pantoprazole 40 MG VIAL IVP SCH (10:05)
[2021-09-17] MEDS: NPH, Human Insulin Isophane 300 UNIT/3 ML VIAL SQ SCH (10:05)
[2021-09-17] MEDS: Venlafaxine XR 37.5 MG CAP PO SCH (10:05)
[2021-09-17] MEDS: Sodium Chloride 0.9% 1,000 ML IV SCH (14:57)
[2021-09-17 16:19] VITALS: BP 118/82; TEMP 97.9
== END 2021-09-17 18:20 | disposition home or self-care (01) | DRG 638 ==
LOC: ERS 07:35 → T4-B 12:20 → OBSVTOIN 09-13 20:28
PROVIDERS: ADMIT Internal Medicine; ATTEND Internal Medicine
PROC: 0DB68ZX Excision of Stomach, Via Natural or Artificial Opening Endoscopic, Diagnostic (ICD-10-PCS; principal; 2021-09-14)
DX: E10.10 Type 1 diabetes mellitus with ketoacidosis without coma (principal); N17.9 Acute kidney failure, unspecified; Z20.822 Contact with and (suspected) exposure to COVID-19; K22.10 Ulcer of esophagus without bleeding; E87.1 Hypo-osmolality and hyponatremia; E10.43 Type 1 diabetes mellitus with diabetic autonomic (poly)neuropathy; K31.84 Gastroparesis; F41.9 Anxiety disorder, unspecified; F32.A Depression, unspecified; F17.290 Nicotine dependence, other tobacco product, uncomplicated; K44.9 Diaphragmatic hernia without obstruction or gangrene; E86.0 Dehydration; F12.10 Cannabis abuse, uncomplicated; E88.9 Metabolic disorder, unspecified; D72.829 Elevated white blood cell count, unspecified; K21.00 Gastro-esophageal reflux disease with esophagitis, without bleeding; K25.9 Gastric ulcer, unspecified as acute or chronic, without hemorrhage or perforation; E87.6 Hypokalemia; K27.9 Peptic ulcer, site unspecified, unspecified as acute or chronic, without hemorrhage or perforation; Z79.01 Long term (current) use of anticoagulants; Z79.4 Long term (current) use of insulin; Z79.899 Other long term (current) drug therapy; Z90.49 Acquired absence of other specified parts of digestive tract; Z83.3 Family history of diabetes mellitus
CPT/HCPCS: 36415; 36416; 76705; 76856; 80048; 80053; 80306; 80307; 81003; 81015; 81025; 82010; 82805; 83605; 83690; 83930; 84443; 85025; 87040; 87086; 88305; 93005; 93976; C9113; J0696; J1100; J1200; J1630; J1815; J1885; J2270; J2405; J2550; J2704; J3010; J3490; J7050; Q0162; S0028; U0003; U0005

== ENCOUNTER 2021-09-28 08:17 | Emergency (ER) | payer OTHER ==
[2021-09-28] MEDS ORDERED: traMADol HCl 50 MG TAB ONE (09:53)
== END 2021-09-28 10:07 | disposition home or self-care (01) ==
LOC: ERS 08:17
DX: S90.122A Contusion of left lesser toe(s) without damage to nail, initial encounter (principal); W22.8XXA Striking against or struck by other objects, initial encounter

== ENCOUNTER 2021-10-12 05:43 | Inpatient (IN) | payer OTHER ==
[2021-10-12] MEDS ORDERED: Ondansetron PF 4 MG/2 ML Vial ONE ×2 (05:57→14:13)
[2021-10-12 06:12] LABS: #Eosinphils 0.1 thou/uL (0.0-0.7); #Lymphocytes 1.1 thou/uL (1.20-3.40); #Monocytes 0.7 thou/uL (0.11-0.59); #Neutrophils 17.4 thou/uL (1.40-6.50); %Basophils 0.1 % (0.0-1.0); %Eosinophils 0.3 % (0.0-10.0); %Lymphocytes 5.6 % (21.0-51.0); %Monocytes 3.6 % (0.0-10.0); %Neutrophils 90.4 % (42.0-75.0); Hemoglobin 15.1 g/dL (12.0-16.0); Mean Corpuscular HGB CONC 31.9 g/dL (32.0-36.0); Mean Corpuscular Hemoglobin 30.7 pg (27.0-31.0); Mean Corpuscular Volume 96.1 fL (78.0-98.0); Mean Platelet Volume 9.1 fL (7.4-10.4); Platelet Count 308 thou/uL (130-400); RBC Distribution Width 11.8 % (11.5-14.5); Red Blood Cell (RBC) Count 4.93 mill/uL (4.20-5.40); White Blood Cell (WBC) Count 19.2 thou/uL (4.8-10.8)
[2021-10-12 06:21] LABS: BHCG - Serum Negative (NEGATIVE); Pregs Control Background? CLEAR/WHITE (CLR/WHITE); Pregs Control Bar Appear? YES (CONTROL BAR)
[2021-10-12 06:23] LABS: Analyzer IN Cardio ER
[2021-10-12 06:24] LABS: Actual Bicarbonate (HCO3v) 9 mEq/L (22-28); Base Excess -12.4 mEq/L (-2.0 to +3.0); Hemoglobin (Hb) 15.6 g/dL (11.7-15.5); Sodium 134.8 mmol/L (133-146)
[2021-10-12 06:25] LABS: Calcium, Ionized (venous) 0.93 mmol/L (1.16-1.32); Chloride (VBG) 98 mmol/L (98-106); Potassium (VBG) 7.31 mmol/L (3.70-5.30)
[2021-10-12] MEDS ORDERED: Diazepam 10 MG/2 ML SYRINGE ONE (06:29)
[2021-10-12 06:31] LABS: Phosphorus 4.7 mg/dL (2.3-4.7)
[2021-10-12 06:37] LABS: ALT (SGPT) 30 U/L (8-55); AST (SGOT) 28 U/L (5-34); Albumin 4.8 g/dL (3.5-5.0); Alkaline Phosphatase 129 U/L (40-110); Anion Gap 34 mmol/L (10-20); BUN (Urea Nitrogen) 25 mg/dL (7.0-18.7); Calc. Creatinine Clearance 0 mL/min (70-130); Calcium 10.7 mg/dL (7.8-10.44); Carbon Dioxide 13 mmol/L (22-29); Chloride 98 mmol/L (98-107); Globulin 4.4 g/dL (2.4-3.5); Glucose 448 mg/dL (70-105); Magnesium 1.9 mg/dL (1.6-2.6); Potassium 5.2 mmol/L (3.5-5.1); Protein, Total 9.2 g/dL (6.0-8.3); Sodium 140 mmol/L (136-145)
[2021-10-12] MEDS ORDERED: INSULIN REGULAR IN 0.9 % NACL 100 UNIT/100 ML BAG ONE (06:46)
[2021-10-12] MEDS ORDERED: Insulin Regular 300 UNITS/3 ML VIAL ONE (06:46)
[2021-10-12 06:49] LABS: Amphetamine Not Detected (NotDetected); Barbiturates Screen Not Detected (NotDetected); Benzodiazepine Screen Not Detected (NotDetected); Cocaine Metabolite Screen Not Detected (NotDetected); Methadone Not Detected (NotDetected); Methamphetamine Not Detected (NotDetected); Opiate Screen Not Detected (NotDetected); Oxycodone Screen Not Detected (NotDetected); Phencyclidine (PCP) Not Detected (NotDetected); THC/Cannabinoid Screen Detected (NotDetected); Tricyclic Screen Not Detected (NotDetected)
[2021-10-12 06:57] LABS: Bilirubin Negative (Negative); Blood, Urine Negative (Negative); Clarity Clear (Clear); Glucose, Urine (Dipstick) Greater than 1000 mg/dL (Negative); Ketone, Urine Greater than 150 mg/dL (Negative); Leukocyte Negative Leu/uL (Negative); Nitrite Negative (Negative); Protein, Urine (Dipstick) 30 mg/dL (Neg-Trace); RBC/HPF 0-3 HPF (0-3); Urobilinogen Normal mg/dL (Less than 2); WBC/HPF 0-3 HPF (0-3)
[2021-10-12 06:58] LABS: Bacteria/HPF Rare-Few HPF (None Seen)
[2021-10-12] MEDS ORDERED: Sodium Chloride 0.9% 1,000 ML IV PRN ×4 (08:58)
[2021-10-12] MEDS ORDERED: NS 0.9% w/ 20 MEQ KCL 1,000 ML IV PRN ×2 (08:58)
[2021-10-12] MEDS ORDERED: Dextrose 5 %-0.45 % NaCl 1,000 ML IV PRN (08:58)
[2021-10-12] MEDS ORDERED: Electrolyte Replacement Protocol 1 EACH IVPB PRN (08:58)
[2021-10-12] MEDS ORDERED: Enoxaparin Sodium 40 MG/0.4 ML SYRINGE SC SCH ×2 (09:00)
[2021-10-12] MEDS ORDERED: HUMULIN R 100 UNITS in Sodium Chloride 0.9% 100 ML IVPB SCH (09:00)
[2021-10-12] MEDS ORDERED: cefTRIAXone\\ROCEPHIN 1 GM in Sodium Chloride 0.9% 100 ML IVPB SCH (09:30)
[2021-10-12] MEDS ORDERED: Ondansetron ODT 4 MG TAB ONE (09:44)
[2021-10-12 10:01] LABS: Anion Gap 23 mmol/L (10-20); BUN (Urea Nitrogen) 25 mg/dL (7.0-18.7); Calc. Creatinine Clearance 0 mL/min (70-130); Calcium 9.4 mg/dL (7.8-10.44); Carbon Dioxide 17 mmol/L (22-29); Chloride 107 mmol/L (98-107); Glucose 256 mg/dL (70-105); Sodium 143 mmol/L (136-145)
[2021-10-12] MEDS ORDERED: cefTRIAXone\\ROCEPHIN 1 GM VIAL ONE (10:37)
[2021-10-12 10:50] LABS: SARS-CoV-2 NAA Rapid Test Not Detected (NotDetected)
[2021-10-12] MEDS ORDERED: Lidocaine 4% Cream 5 GM TUBE w/ Tegaderm ONE (11:57)
[2021-10-12] MEDS ORDERED: Magnesium 2 GM/50 ML 2 GM in Premix Bag 1 BAG IVPB SCH (12:00)
[2021-10-12] MEDS ORDERED: D5 1/2 NS w/20 mEq KCL 1,000 ML ONE ×2 (12:38→18:23)
[2021-10-12] MEDS ORDERED: Magnesium 2 GM/50 ML BAG (IN WATER) ONE (12:39)
[2021-10-12 13:49] LABS: Anion Gap 26 mmol/L (10-20); BUN (Urea Nitrogen) 25 mg/dL (7.0-18.7); Calc. Creatinine Clearance 0 mL/min (70-130); Calcium 9.3 mg/dL (7.8-10.44); Carbon Dioxide 13 mmol/L (22-29); Chloride 109 mmol/L (98-107); Glucose 179 mg/dL (70-105); Potassium 4.1 mmol/L (3.5-5.1); Sodium 144 mmol/L (136-145)
[2021-10-12] MEDS: D5 1/2 NS w/20 mEq KCL 1,000 ML IV PRN ×2 (14:06→22:02)
[2021-10-12] MEDS: Ondansetron PF 4 MG/2 ML Vial IVP PRN ×2 (14:17→22:02)
[2021-10-12 17:30] LABS: Anion Gap 20 mmol/L (10-20); BUN (Urea Nitrogen) 22 mg/dL (7.0-18.7); Calc. Creatinine Clearance 0 mL/min (70-130); Calcium 8.8 mg/dL (7.8-10.44); Carbon Dioxide 15 mmol/L (22-29); Chloride 110 mmol/L (98-107); Glucose 197 mg/dL (70-105); Potassium 4.2 mmol/L (3.5-5.1); Sodium 141 mmol/L (136-145)
[2021-10-12] MEDS ORDERED: Metoclopramide HCl 10 MG/2 ML VIAL ONE (18:27)
[2021-10-12] MEDS ORDERED: Metoclopramide HCl 10 MG/2 ML VIAL IVP SCH (18:30)
[2021-10-12] MEDS ORDERED: Lorazepam 0.5 MG TAB PO PRN (22:39)
[2021-10-12] MEDS: traMADol HCl 50 MG TAB PO PRN (22:58)
[2021-10-13] MEDS: Transdermal Patch Removal TOP SCH ×2 (00:11→23:57)
[2021-10-13] MEDS: D5 1/2 NS w/20 mEq KCL 1,000 ML IV PRN ×2 (02:43→06:30)
[2021-10-13] MEDS: traMADol HCl 50 MG TAB PO PRN (02:44)
[2021-10-13 04:08] LABS: #Lymphocytes 1.6 thou/uL (1.20-3.40); #Neutrophils 13.7 thou/uL (1.40-6.50); %Basophils 0.1 % (0.0-1.0); %Eosinophils 0.2 % (0.0-10.0); %Monocytes 5.9 % (0.0-10.0); %Neutrophils 83.8 % (42.0-75.0); Hemoglobin 12.4 g/dL (12.0-16.0); Mean Corpuscular HGB CONC 33.1 g/dL (32.0-36.0); Mean Corpuscular Hemoglobin 31.9 pg (27.0-31.0); Mean Corpuscular Volume 96.2 fL (78.0-98.0); Mean Platelet Volume 8.2 fL (7.4-10.4); Platelet Count 215 thou/uL (130-400); RBC Distribution Width 11.7 % (11.5-14.5); Red Blood Cell (RBC) Count 3.88 mill/uL (4.20-5.40); White Blood Cell (WBC) Count 16.4 thou/uL (4.8-10.8)
[2021-10-13 04:10] LABS: Anion Gap 12 mmol/L (10-20); BUN (Urea Nitrogen) 13 mg/dL (7.0-18.7); Calc. Creatinine Clearance 88 mL/min (70-130); Calcium 8.6 mg/dL (7.8-10.44); Carbon Dioxide 21 mmol/L (22-29); Chloride 111 mmol/L (98-107); Glucose 184 mg/dL (70-105); Potassium 3.7 mmol/L (3.5-5.1); Sodium 140 mmol/L (136-145)
[2021-10-13 06:16] VITALS: BMI 25.0
[2021-10-13] MEDS ORDERED: Ketorolac Tromethamine 30 MG/ML VIAL IVP PRN (08:44)
[2021-10-13] MEDS ORDERED: Insulin Regular 300 UNITS/3 ML VIAL SC PRN (08:46)
[2021-10-13] MEDS ORDERED: Dextrose 50% Abboject 50 ML SYRINGE SLOW IVP PRN (08:46)
[2021-10-13] MEDS ORDERED: Ondansetron PF 4 MG/2 ML Vial IVP PRN (08:46)
[2021-10-13] MEDS ORDERED: Dextrose 5% in Water 1,000 ML IV PRN (08:46)
[2021-10-13] MEDS ORDERED: Lorazepam 0.5 MG TAB PO PRN (08:49)
[2021-10-13] MEDS: Pantoprazole 40 MG VIAL IVP SCH ×2 (08:52→20:45)
[2021-10-13] MEDS: Enoxaparin Sodium 40 MG/0.4 ML SYRINGE SC SCH (08:52)
[2021-10-13] MEDS: cefTRIAXone\\ROCEPHIN 2 GM in Sodium Chloride 0.9% 100 ML IVPB SCH (09:00)
[2021-10-13] MEDS ORDERED: NPH, Human Insulin Isophane 300 UNIT/3 ML VIAL SC SCH ×2 (09:00→17:00)
[2021-10-13] MEDS ORDERED: Pantoprazole 40 MG VIAL IVP SCH (09:00)
[2021-10-13 09:25] LABS: Magnesium 1.8 mg/dL (1.6-2.6); Phosphorus 1.9 mg/dL (2.3-4.7)
[2021-10-13] MEDS: Ondansetron PF 4 MG/2 ML Vial IVP SCH ×3 (09:39→20:45)
[2021-10-13] MEDS ORDERED: Potassium Phosphate 15 MMOL in Sodium Chloride 0.9% 250 ML 250 ML IVPB SCH (09:45)
[2021-10-13] MEDS ORDERED: Magnesium 2 GM/50 ML 2 GM in Premix Bag 1 BAG IVPB SCH (09:45)
[2021-10-13] MEDS: 1/2 NS w/KCL 20 mEq 1,000 ML IV SCH ×2 (09:53→17:17)
[2021-10-13] MEDS: Saccharomyces boulardii 250 MG CAP PO SCH (09:53)
[2021-10-13] MEDS: Venlafaxine XR 37.5 MG CAP PO SCH (09:53)
[2021-10-13] MEDS: Ketorolac Tromethamine 30 MG/ML VIAL IVP PRN ×2 (10:06→17:07)
[2021-10-13] MEDS: Lidocaine 5% Patch TD SCH (11:43)
[2021-10-13] MEDS: Insulin Regular 300 UNITS/3 ML VIAL SC PRN ×2 (12:42→17:03)
[2021-10-13] MEDS: Ondansetron ODT 4 MG TAB PO PRN (17:06)
[2021-10-13] MEDS: NPH, Human Insulin Isophane 300 UNIT/3 ML VIAL SC SCH (17:08)
[2021-10-14] MEDS: 1/2 NS w/KCL 20 mEq 1,000 ML IV SCH ×3 (01:20→17:03)
[2021-10-14] MEDS: Ketorolac Tromethamine 30 MG/ML VIAL IVP PRN ×3 (01:43→14:00)
[2021-10-14] MEDS: Ondansetron ODT 4 MG TAB PO PRN (01:43)
[2021-10-14] MEDS: Ondansetron PF 4 MG/2 ML Vial IVP SCH ×3 (03:37→15:20)
[2021-10-14] MEDS: Insulin Regular 300 UNITS/3 ML VIAL SC PRN ×4 (04:17→20:12)
[2021-10-14] MEDS ORDERED: NPH, Human Insulin Isophane 300 UNIT/3 ML VIAL SC SCH ×2 (07:30→08:00)
[2021-10-14 07:55] LABS: #Lymphocytes 1.6 thou/uL (1.20-3.40); #Monocytes 0.7 thou/uL (0.11-0.59); #Neutrophils 7.6 thou/uL (1.40-6.50); %Basophils 0.4 % (0.0-1.0); %Eosinophils 0.3 % (0.0-10.0); %Lymphocytes 16.3 % (21.0-51.0); %Monocytes 6.6 % (0.0-10.0); %Neutrophils 76.3 % (42.0-75.0); Hemoglobin 12.3 g/dL (12.0-16.0); Mean Corpuscular Hemoglobin 32.7 pg (27.0-31.0); Mean Corpuscular Volume 96.1 fL (78.0-98.0); Mean Platelet Volume 8.5 fL (7.4-10.4); Platelet Count 186 thou/uL (130-400); RBC Distribution Width 11.7 % (11.5-14.5); Red Blood Cell (RBC) Count 3.78 mill/uL (4.20-5.40); White Blood Cell (WBC) Count 9.9 thou/uL (4.8-10.8)
[2021-10-14] MEDS: Enoxaparin Sodium 40 MG/0.4 ML SYRINGE SC SCH (08:12)
[2021-10-14] MEDS: Pantoprazole 40 MG VIAL IVP SCH (08:13)
[2021-10-14] MEDS: Saccharomyces boulardii 250 MG CAP PO SCH (08:13)
[2021-10-14] MEDS: Venlafaxine XR 37.5 MG CAP PO SCH (08:13)
[2021-10-14] MEDS: cefTRIAXone\\ROCEPHIN 2 GM in Sodium Chloride 0.9% 100 ML IVPB SCH (08:14)
[2021-10-14 08:17] LABS: Anion Gap 14 mmol/L (10-20); BUN (Urea Nitrogen) 7 mg/dL (7.0-18.7); Calc. Creatinine Clearance 113 mL/min (70-130); Calcium 8.6 mg/dL (7.8-10.44); Carbon Dioxide 22 mmol/L (22-29); Chloride 104 mmol/L (98-107); Glucose 184 mg/dL (70-105); Magnesium 1.7 mg/dL (1.6-2.6); Potassium 3.9 mmol/L (3.5-5.1); Sodium 136 mmol/L (136-145)
[2021-10-14 08:42] LABS: Phosphorus 2.3 mg/dL (2.3-4.7)
[2021-10-14] MEDS ORDERED: Magnesium 2 GM/50 ML 2 GM in Premix Bag 1 BAG IVPB SCH (08:45)
[2021-10-14] MEDS: Lidocaine 5% Patch TD SCH (12:24)
[2021-10-14] MEDS: NPH, Human Insulin Isophane 300 UNIT/3 ML VIAL SC SCH (17:05)
[2021-10-14] MEDS: Metoclopramide HCl 10 MG/2 ML VIAL IVP SCH ×2 (18:36→23:47)
[2021-10-14] MEDS: Doxycycline 100 MG CAP PO SCH (20:12)
[2021-10-14] MEDS: Transdermal Patch Removal TOP SCH (23:47)
[2021-10-15] MEDS: 1/2 NS w/KCL 20 mEq 1,000 ML IV SCH ×3 (00:03→16:59)
[2021-10-15] MEDS: Ketorolac Tromethamine 30 MG/ML VIAL IVP PRN ×4 (00:04→19:44)
[2021-10-15] MEDS: Metoclopramide HCl 10 MG/2 ML VIAL IVP SCH ×3 (05:46→17:08)
[2021-10-15] MEDS: Ondansetron PF 4 MG/2 ML Vial IVP PRN ×3 (06:01→19:44)
[2021-10-15] MEDS: Enoxaparin Sodium 40 MG/0.4 ML SYRINGE SC SCH (08:30)
[2021-10-15] MEDS: NPH, Human Insulin Isophane 300 UNIT/3 ML VIAL SC SCH ×2 (08:33→17:02)
[2021-10-15] MEDS: cefTRIAXone\\ROCEPHIN 2 GM in Sodium Chloride 0.9% 100 ML IVPB SCH (08:44)
[2021-10-15] MEDS: Saccharomyces boulardii 250 MG CAP PO SCH (08:45)
[2021-10-15] MEDS: Doxycycline 100 MG CAP PO SCH ×2 (08:45→20:35)
[2021-10-15] MEDS: Venlafaxine XR 37.5 MG CAP PO SCH (08:45)
[2021-10-15] MEDS ORDERED: Promethazine HCl 25 MG in Sodium Chloride 0.9% 50 ML IVPB SCH (09:00)
[2021-10-15] MEDS: Lidocaine 5% Patch TD SCH (12:23)
[2021-10-15] MEDS: Insulin Regular 300 UNITS/3 ML VIAL SC PRN (12:42)
[2021-10-15] MEDS: Transdermal Patch Removal TOP SCH (23:37)
[2021-10-16] MEDS: 1/2 NS w/KCL 20 mEq 1,000 ML IV SCH ×2 (01:40→08:36)
[2021-10-16] MEDS: Insulin Regular 300 UNITS/3 ML VIAL SC PRN ×5 (04:08→21:05)
[2021-10-16] MEDS: Ondansetron PF 4 MG/2 ML Vial IVP PRN (04:12)
[2021-10-16] MEDS: Ketorolac Tromethamine 30 MG/ML VIAL IVP PRN ×2 (04:13→17:14)
[2021-10-16 08:06] LABS: Anion Gap 22 mmol/L (10-20); BUN (Urea Nitrogen) 16 mg/dL (7.0-18.7); Calc. Creatinine Clearance 75 mL/min (70-130); Calcium 9.3 mg/dL (7.8-10.44); Carbon Dioxide 18 mmol/L (22-29); Chloride 97 mmol/L (98-107); Glucose 430 mg/dL (70-105); Magnesium 1.9 mg/dL (1.6-2.6); Phosphorus 2.5 mg/dL (2.3-4.7); Potassium 4.8 mmol/L (3.5-5.1); Sodium 132 mmol/L (136-145)
[2021-10-16] MEDS: Metoclopramide 10 MG/10 ML UDCUP PO SCH ×4 (08:19→21:04)
[2021-10-16] MEDS: Saccharomyces boulardii 250 MG CAP PO SCH (08:20)
[2021-10-16] MEDS: Venlafaxine XR 37.5 MG CAP PO SCH (08:20)
[2021-10-16] MEDS: Doxycycline 100 MG CAP PO SCH ×2 (08:21→21:04)
[2021-10-16] MEDS: Enoxaparin Sodium 40 MG/0.4 ML SYRINGE SC SCH (08:21)
[2021-10-16] MEDS: cefTRIAXone\\ROCEPHIN 2 GM in Sodium Chloride 0.9% 100 ML IVPB SCH (08:22)
[2021-10-16] MEDS: NPH, Human Insulin Isophane 300 UNIT/3 ML VIAL SC SCH (08:32)
[2021-10-16] MEDS: Lidocaine 5% Patch TD SCH (12:08)
[2021-10-16] MEDS ORDERED: Sodium Chloride 0.9% 1,000 ML IV SCH (13:15)
[2021-10-16] MEDS ORDERED: NPH, Human Insulin Isophane 300 UNIT/3 ML VIAL SC SCH (17:00)
[2021-10-17] MEDS: Transdermal Patch Removal TOP SCH (00:32)
[2021-10-17] MEDS: NPH, Human Insulin Isophane 300 UNIT/3 ML VIAL SC SCH ×2 (06:55→08:02)
[2021-10-17] MEDS: Ketorolac Tromethamine 30 MG/ML VIAL IVP PRN (06:58)
[2021-10-17] MEDS: Metoclopramide 10 MG/10 ML UDCUP PO SCH ×2 (06:58→10:58)
[2021-10-17] MEDS: cefTRIAXone\\ROCEPHIN 2 GM in Sodium Chloride 0.9% 100 ML IVPB SCH (08:01)
[2021-10-17] MEDS: Doxycycline 100 MG CAP PO SCH (08:01)
[2021-10-17] MEDS: Venlafaxine XR 37.5 MG CAP PO SCH (08:01)
[2021-10-17] MEDS: Saccharomyces boulardii 250 MG CAP PO SCH (08:02)
[2021-10-17] MEDS: Enoxaparin Sodium 40 MG/0.4 ML SYRINGE SC SCH (08:09)
[2021-10-17] MEDS: Insulin Regular 300 UNITS/3 ML VIAL SC PRN (11:00)
[2021-10-17 11:22] VITALS: BP 112/76; TEMP 97.9
== END 2021-10-17 11:20 | disposition home or self-care (01) | DRG 73 ==
LOC: SUATTDRO 05:43 → ERS 05:43 → ERHOLD 06:53 → IMCU/EMU 21:45 → T4-B 10-13 15:58
PROVIDERS: ADMIT Internal Medicine; ATTEND Internal Medicine
DX: E10.43 Type 1 diabetes mellitus with diabetic autonomic (poly)neuropathy (principal); A41.50 Gram-negative sepsis, unspecified; J15.6 Pneumonia due to other Gram-negative bacteria; N17.9 Acute kidney failure, unspecified; E87.2 Acidosis; E10.10 Type 1 diabetes mellitus with ketoacidosis without coma; K31.84 Gastroparesis; R11.2 Nausea with vomiting, unspecified; F41.9 Anxiety disorder, unspecified; F32.A Depression, unspecified; K29.70 Gastritis, unspecified, without bleeding; F17.290 Nicotine dependence, other tobacco product, uncomplicated; E86.0 Dehydration; F12.10 Cannabis abuse, uncomplicated; E83.52 Hypercalcemia; E87.5 Hyperkalemia; K21.00 Gastro-esophageal reflux disease with esophagitis, without bleeding; E83.42 Hypomagnesemia; E83.39 Other disorders of phosphorus metabolism; Z79.4 Long term (current) use of insulin; Z79.899 Other long term (current) drug therapy; Z90.49 Acquired absence of other specified parts of digestive tract
CPT/HCPCS: 36415; 36416; 71046; 74019; 80048; 80053; 80306; 81003; 81015; 82010; 82805; 83735; 84100; 84145; 84703; 85025; 93005; C9113; J0696; J1650; J1815; J1885; J2405; J2550; J2765; J3360; J3475; J3480; J3490; J7030; J7042; J7050; Q0162; U0002